=== PATIENT | female | born 1985 | race Caucasian/White ===

== ENCOUNTER 2022-12-11 17:25 | Outpatient (CLI) | payer OTHER, SELFPAY ==
--- NOTE | ~2022-12-11 | CT_ITS ---
EXAMINATION: CT abdomen pelvis w con DATE: 12/11/2022 17:50 INDICATION: R10.31 - Right lower quadrant pain TECHNIQUE: Computed tomography (CT) of the abdomen and pelvis was performed with 100 mL Omnipaque-350 intravenous contrast. Automated exposure control and iterative reconstruction technique were employe d. The dose-length product was 748.42 mGy-cm. COMPARISON: None. FINDINGS: Lower thorax: Unremarkable Liver: Normal. Biliary/Gallbladder: Gallbladder is normal. No bile duct dilation. Pancreas: No mass or duct dilation. Spleen: Normal. Adrenals: 7 mm indeterminate density left adrenal nodule, likely benign adenoma, no additional imagin g workup recommended at this time. Kidneys: No suspicious mass, obstructing stone, or hydronephrosis. Subcentimeter left midpole hypoden sity, too small to characterize but most likely represents a cyst. GI tract: No small or large bowel dilation. Mild appendiceal dilation, to 8 mm, with mild wall edema and mild surrounding inflammatory change. Mesentery/Peritoneum: No ascites, mass, or free air. Retroperitoneum: No mass. Pelvis: Simple bilateral ovarian cysts/dominant follicles. Normal uterus. Normal urinary bladder. Soft Tissues: Soft tissues and body wall unremarkable. Bones: No acute osseous finding. IMPRESSION: Acute uncomplicated appendicitis. Results reported telephonically to Dr. Turcios by Dr. Schmitt at 6:07 PM on 12/11/2022. Reviewed, dictated and finalized at location K. IMPRESSION: Acute uncomplicated appendicitis. Results reported telephonically to Dr. Turcios by Dr. Schmitt at 6:07 PM on 12/12/19 23.
[2022-12-11 18:16] LABS: Basophils Percent Auto 0.3 % (0.2-1.2); Eosinophils Absolute Auto 0.2 K/mm3 (0-0.3); Eosinophils Percent Auto 1.8 % (0-4.4); Hematocrit 33.6 % (37.0-47.0); Hemoglobin 11.3 g/dL (12.0-15.0); Immature Granulocyte Absolute 0.05 K/mm3 (0.00-0.031); Immature Granulocyte Percent A 0.5 % (0-0.5); Lymphocytes Absolute Auto 1.51 K/mm3 (0.9-3.2); Lymphocytes Percent Auto 15.4 % (18.3-44.2); Mean Corpuscular HGB Conc 33.6 g/dl (32-36); Mean Corpuscular Hemoglobin 29.7 pg (26-34); Mean Corpuscular Volume 88.4 fl (80-100); Mean Platelet Volume 9.4 fl (7.4-10.4); Monocytes Absolute Auto 0.6 K/mm3 (0.1-0.6); Monocytes Percent Auto 6.2 % (2.6-8.5); Neutrophils Absolute Auto 7.4 K/mm3 (1.3-6.7); Neutrophils Percent Auto 75.8 % (45.5-73.1); Platelet Count Result 242 k/mm3 (150-375); Red Cell Distribution Width 12.9 % (11.5-14.5); White Blood Count 9.8 K/mm3 (4.5-10.0)
[2022-12-11 18:27] LABS: Alanine Aminotransferase 26 U/L (6-35); Albumin Level 4.2 g/dL (3.5-5.1); Alkaline Phosphatase 50 U/L (38-126); Anion Gap 9 mmol/L (8-16); Aspartate Amino Transferase 24 U/L (14-36); Bilirubin,Total 1.2 mg/dL (0.2-1.3); Blood Urea Nitrogen 8 mg/dL (7-17); Calcium 8.7 mg/dL (8.4-10.2); Carbon Dioxide 25 mmol/L (22-30); Chloride 100 mmol/L (98-107); Estimated Glomerular Filt Rate > 60; Glucose 99 mg/dL (65-110); Potassium 3.8 mmol/L (3.4-5.0); Sodium 134 mmol/L (137-145)
[2022-12-11 18:43] LABS: Beta HCG Quantitative < 2.39 mIU/ML
== END 2022-12-11 17:26 | disposition home or self-care (01) ==
LOC: ANHIMG 17:27
PROVIDERS: PCP Family Medicine; Visit Provider Family Medicine
DX: R10.31 Right lower quadrant pain (principal); K35.80 Unspecified acute appendicitis
CPT/HCPCS: 36415; 74177; 80053; 84702; 85025; Q9967

== ENCOUNTER 2022-12-11 18:14 | Observation (INO) | payer OTHER, SELFPAY ==
[2022-12-11 18:41] VITALS: BP 126/69; PULSE 86; RESP 20; TEMP 36.6; O2SAT 100
--- NOTE | 2022-12-11 19:43 | ED.ABDPAIN ---
HPI - Abdominal Pain General Chief Complaint: Abdominal Pain <NIXON Schneider Last Filed: 12/11/22 20:08> Stated Complaint: abd pain <NIXON Schneider Last Filed: 12/11/22 20:08> Time Seen by Provider: 12/11/22 19:29 <NIXON Schneider Last Filed: 12/11/22 20:08> Source: patient <NIXON Schneider Last Filed: 12/11/22 20:08> Mode of arrival: ambulatory <NIXON Schneider Last Filed: 12/11/22 20:08> Limitations: no limitations <NIXON Schneider Last Filed: 12/11/22 20:08> History of Present Illness HPI narrative: This is a 37 year old female that presents to the ER for right lower quadrant abdominal pain. Ongoing today. Associated with chills, nausea, anorexia and diarrhea. She had an outpatient CT scan today. Has not received results yet. Denies fever, or vomiting. <NIXON Schneider Last Filed: 12/11/22 20:08> Related Data Home Medications: Home Medications Medication Instructions Recorded Confirmed bupropion HCl 150 mg 24 hr tablet, 150 mg PO QAM 04/18/22 12/11/22 extended release (Wellbutrin XL) <NIXON Schneider Last Filed: 12/11/22 20:08> Allergies/Adverse Reactions: Allergies Allergy/AdvReac Type Severity Reaction Status Date / Time pear Allergy Unknown Unknown Verified 12/12/22 08:51 Penicillins AdvReac Severe Nausea Verified 12/12/22 12:05 <NIXON Schneider Last Filed: 12/11/22 20:08> Review of Systems Review of Systems: CONSTITUTIONAL: Denies fever GASTROINTESTINAL: Reports abdominal pain, nausea, and diarrhea. <NIXON Schneider Last Filed: 12/11/22 20:08> All systems reviewed & are unremarkable except as noted in HPI and below <NIXON Schneider Last Filed: 12/11/22 20:08> PMFSH Past Medical History Medical History: Medical History Depression Seasonal allergies <Blanca West PA-C - Last Filed: 12/11/22 20:08> Family History Family History: Family History Grandparent Diabetes mellitus Hypertension Heart disease Grandparent Breast cancer Grandparent No problems noted. <Blanca West PA-C - Last Filed: 12/11/22 20:08> Social History Social History: Social History Smoking status: Never smoker Alcohol intake: never Substance use: never Lack of Transportation: No Lack of Food: Never True Current Housing: I Have Housing Concerned About Future Housing: No Difficulty Paying Gas/Electric Bills: No Difficulty Paying for Meds: No Currently Unemployed: No Education: High School Diploma/GED Difficulty w/ Childcare or Family Care: No Living arrangements: with family Gender identity (if verbalized by the patient): Female Sexual Orientation (if Verbalized by the Patient): Straight or Heterosexual Spiritual care concerns: No Agree to blood products: Yes <Blanca West PA-C - Last Filed: 12/11/22 20:08> Exam Narrative: GENERAL: Well-appearing, well-nourished, and in no acute distress. HEAD: Normocephalic, atraumatic. EYES: EOMI. CHEST: Clear to auscultation. No respiratory distress. No wheezes rales or rhonchi HEART: Regular rate and rhythm. No murmur heard. Normal peripheral pulses. ABDOMEN: Soft, nondistended, normal active bowel sounds. Tender to palpation in the right lower quadrant, without guarding EXTREMITIES: Normal range of motion. No edema. SKIN: Warm, dry, no rash. NEURO: No focal deficits. Alert and oriented x3. 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
[2022-12-11] MEDS: MORPHINE SULFATE (*CRX) 4 MG/ML INJ IV PUSH (20:19)
[2022-12-11] MEDS: ONDANSETRON INJ 4 MG/2 ML VIAL IV PUSH (20:19)
[2022-12-11 20:54] VITALS: BP 130/70; PULSE 82; RESP 16; O2SAT 99
[2022-12-11 21:20] VITALS: BP 114/75; PULSE 79; RESP 18; TEMP 36.7; O2SAT 100
[2022-12-11] MEDS: SODIUM CHLORIDE 0.9% IV 1,000 ML 125 ML IV CONT (22:11)
[2022-12-11] MEDS: metroNIDAZOLE 500 MG/ISO 100ML 500 MG/100 ML BAG 100 MG IVPB (22:14)
--- NOTE | 2022-12-11 22:22 | ADMGEN ---
This patient, Blanca Evans, was admitted to 3 [facility] Surg Room 319-01 @2105. Patient/family oriented to hospital policies and general routines including ID bracelet, bed and alarms, visiting hours, pain management, procedures, bathroom and other care routines, personal items, smoking policy, room service/diet, and visiting hours. Information on how to activate the Rapid Response Team has been discussed. Patient/Family are encouraged to report perceived risks to care and to ask questions if they do not understand what they are told or what they should do.
[2022-12-12] VITALS (15 sets, daily range): BP systolic 104–134; BP diastolic 56–79; PULSE 65–94; RESP 14–20; TEMP 36.2–36.9; O2SAT 98–100
[2022-12-12] MEDS: metroNIDAZOLE 500 MG/ISO 100ML 500 MG/100 ML BAG 100 MG IVPB (05:17)
[2022-12-12 07:19] LABS: Basophils Percent Auto 0.4 % (0.2-1.2); Eosinophils Absolute Auto 0.2 K/mm3 (0-0.3); Eosinophils Percent Auto 3.6 % (0-4.4); Hematocrit 32.4 % (37.0-47.0); Hemoglobin 10.8 g/dL (12.0-15.0); Immature Granulocyte Absolute 0.02 K/mm3 (0.00-0.031); Immature Granulocyte Percent A 0.4 % (0-0.5); Lymphocytes Absolute Auto 1.09 K/mm3 (0.9-3.2); Lymphocytes Percent Auto 19.9 % (18.3-44.2); Mean Corpuscular HGB Conc 33.3 g/dl (32-36); Mean Corpuscular Hemoglobin 29.9 pg (26-34); Mean Corpuscular Volume 89.8 fl (80-100); Mean Platelet Volume 9.6 fl (7.4-10.4); Monocytes Absolute Auto 0.4 K/mm3 (0.1-0.6); Monocytes Percent Auto 7.5 % (2.6-8.5); Neutrophils Absolute Auto 3.7 K/mm3 (1.3-6.7); Neutrophils Percent Auto 68.2 % (45.5-73.1); Platelet Count Result 208 k/mm3 (150-375); Red Blood Count 3.61 M/mm3 (4.2-5.4); Red Cell Distribution Width 12.9 % (11.5-14.5); White Blood Count 5.5 K/mm3 (4.5-10.0)
[2022-12-12 07:30] LABS: Alanine Aminotransferase 23 U/L (6-35); Albumin Level 3.8 g/dL (3.5-5.1); Alkaline Phosphatase 48 U/L (38-126); Anion Gap 4 mmol/L (8-16); Aspartate Amino Transferase 22 U/L (14-36); Blood Urea Nitrogen 7 mg/dL (7-17); Calcium 8.3 mg/dL (8.4-10.2); Carbon Dioxide 26 mmol/L (22-30); Chloride 106 mmol/L (98-107); Estimated CRCL calculation 123 ml/min; Estimated Glomerular Filt Rate > 60; Glucose 118 mg/dL (65-110); Potassium 3.6 mmol/L (3.4-5.0); Sodium 136 mmol/L (137-145)
[2022-12-12] MEDS: KETOROLAC 15 MG/ML VIAL (*BKC) IV PUSH (08:30)
[2022-12-12] MEDS: SCOPOLAMINE 1.5 MG PATCH TRANSDERM (08:30)
[2022-12-12] MEDS: ONDANSETRON INJ 4 MG/2 ML VIAL IV PUSH (08:30)
[2022-12-12] MEDS: LACTATED RINGERS 1,000 ML 30 ML IV CONT ×2 (08:30→10:38)
[2022-12-12] MEDS: MORPHINE SULFATE (*CRX) 4 MG/ML INJ IV PUSH (08:45)
--- NOTE | 2022-12-12 09:12 | WPDANESEPPF ---
Anes - Initial Pre Proc Eval Procedure: Operation Date: 12/12/22 09:30 Proposed Procedures p Laparoscopic Appendectomy; Possible Open - Anny Laureano MD Date/Time: 12/12/22 09:12 Surgeon: Corinna Walker DO Pre Op Diagnosis: Acute Appendicitis Patient Data Age: 37 Gender: F Height: 1.68 m Weight: 86.7 kg Last Vital Signs Temp 97.9 F 12/12/22 08:30 Pulse 77 12/12/22 08:30 Resp 16 12/12/22 08:30 BP 119/66 12/12/22 08:30 Pulse Ox 100 12/12/22 08:30 O2 Del Method Room Air 12/12/22 08:30 Allergies Allergy/AdvReac Type Severity Reaction Status Date / Time Penicillins Allergy Severe Nausea Verified 12/12/22 08:51 pear Allergy Unknown Unknown Verified 12/12/22 08:51 Home Medications Medication Instructions Recorded Confirmed Type bupropion HCl 150 mg 24 hr tablet, 150 mg PO QAM 04/18/22 12/11/22 History extended release (Wellbutrin XL) Laboratory Tests 12/12/22 06:51 WBC 5.5 K/mm3 (4.5-10.0) RBC 3.61 L M/mm3 (4.2-5.4) Hgb 10.8 L g/dL (12.0-15.0) Hct 32.4 L % (37.0-47.0) MCV 89.8 fl (80-100) MCH 29.9 pg (26-34) MCHC 33.3 g/dl (32-36) RDW 12.9 % (11.5-14.5) Plt Count 208 k/mm3 (150-375) MPV 9.6 fl (7.4-10.4) Immature Gran % (Auto) 0.4 % (0-0.5) Neut % (Auto) 68.2 % (45.5-73.1) Lymph % (Auto) 19.9 % (18.3-44.2) [place] % (Auto) 7.5 % (2.6-8.5) Eos % (Auto) 3.6 % (0-4.4) Baso % (Auto) 0.4 % (0.2-1.2) Lymph # (Auto) 1.09 K/mm3 (0.9-3.2) [place] # (Auto) 0.4 K/mm3 (0.1-0.6) Eos # (Auto) 0.2 K/mm3 (0-0.3) Baso # (Auto) 0.0 K/mm3 (0.0-0.1) Abs Immat Gran (auto) 0.02 K/mm3 (0.00-0.031) Absolute Neuts (auto) 3.7 K/mm3 (1.3-6.7) Absolute Nucleated RBC 0.0 K/mm3 (0.0-0.012) Nucleated RBC % 0.0 % (0.0-0.2) Sodium 136 L mmol/L (137-145) Potassium 3.6 mmol/L (3.4-5.0) Chloride 106 mmol/L (98-107) Carbon Dioxide 26 mmol/L (22-30) Anion Gap 4 L mmol/L (8-16) BUN 7 mg/dL (7-17) Creatinine 0.60 L mg/dL (0.7-1.0) Estim Creat Clear Calc 123 ml/min Estimated GFR > 60 (59 - ) Glucose 118 H mg/dL (65-110) Calcium 8.3 L mg/dL (8.4-10.2) Total Bilirubin 1.0 mg/dL (0.2-1.3) AST 22 U/L (14-36) ALT 23 U/L (6-35) Alkaline Phosphatase 48 U/L (38-126) Total Protein 7.0 g/dL (6.3-8.2) Albumin 3.8 g/dL (3.5-5.1) Patient hx anesthesia problems: post op nausea/vomiting (has scopolamine patch in place) Family hx anesthesia problems: none Results Review: All pre-operative results and documents have been reviewed as part of the pre-operative evaluation. [facility] Past Medical History Medical History Depression Seasonal allergies Family History Family History (Updated 12/11/22 @ 22:36 by Kristi Gupta RN) Grandparent Diabetes mellitus Hypertension Heart disease Grandparent Breast cancer Grandparent No problems noted. Social History Social History Smoking status: Never smoker Alcohol intake: never Substance use: never Lack of Transportation: No Lack of Food: Never True Current Housing: I Have Housing Concerned About Future Housing: No Difficulty Paying Gas/Electric Bills: No Difficulty Paying for Meds: No Currently Unemployed: No Education: High School Diploma/GED Difficulty w/ Childcare or Family Care: No Living arrangements: with family Gender identity (if verbalized by the patient): Female Sexual Orientation (if Verbalized by the Patient): Straight or Heterosexual Spiritual care concerns: No Agree to blood products: Yes Anes - Eval Final PreProcedure Day of Procedure 12/12/22 09:12 Patient weight: obese Heart: regular rate and rhythm Lungs: clear to auscult
--- NOTE | 2022-12-12 09:23 | PM.IMHP ---
H&P: HPI History of Present Illness Date/Time: 12/12/22 09:23 Chief Complaint: Acute appendicitis Narrative: The patient is a 37-year-old female presenting to the emergency department complaining of right lower quadrant abdominal pain. The patient reported the pain started yesterday and progressively worsened through the day. The patient reports associated nausea and poor appetite. Workup including imaging, is significant for acute uncomplicated appendicitis. The patient denies previous episodes in the past. Review of Systems Review of Systems: All systems reviewed & are unremarkable except as noted in HPI and below PMFSH Past Medical History Medical History Depression Seasonal allergies Family History Family History Grandparent Diabetes mellitus Hypertension Heart disease Grandparent Breast cancer Grandparent No problems noted. Social History Social History Smoking status: Never smoker Alcohol intake: never Substance use: never Lack of Transportation: No Lack of Food: Never True Current Housing: I Have Housing Concerned About Future Housing: No Difficulty Paying Gas/Electric Bills: No Difficulty Paying for Meds: No Currently Unemployed: No Education: High School Diploma/GED Difficulty w/ Childcare or Family Care: No Living arrangements: with family Gender identity (if verbalized by the patient): Female Sexual Orientation (if Verbalized by the Patient): Straight or Heterosexual Spiritual care concerns: No Agree to blood products: Yes Meds Home Medications and Allergies Home Medications Medication Instructions Recorded Confirmed Type bupropion HCl 150 mg 24 hr tablet, 150 mg PO QAM 04/18/22 12/11/22 History extended release (Wellbutrin XL) Allergies Allergy/AdvReac Type Severity Reaction Status Date / Time Penicillins Allergy Severe Nausea Verified 12/12/22 08:51 pear Allergy Unknown Unknown Verified 12/12/22 08:51 Vital Signs Vital Signs - 24 hr 12/11/22 18:41 12/11/22 20:54 12/11/22 21:20 Temperature 36.6 C 36.7 C Pulse Rate 86 82 79 Respiratory Rate 20 16 18 Blood Pressure 126/69 130/70 114/75 Pulse Oximetry 100 99 100 Oxygen Delivery Room Air 12/11/22 23:08 12/12/22 00:00 12/12/22 04:00 Temperature 36.2 C L 36.3 C L Pulse Rate 74 85 Respiratory Rate 16 18 Blood Pressure 117/67 134/77 Pulse Oximetry 99 99 Oxygen Delivery Room Air 12/12/22 08:30 Temperature 36.6 C Pulse Rate 77 Respiratory Rate 16 Blood Pressure 119/66 Pulse Oximetry 100 Oxygen Delivery Room Air Exam Const: General: cooperative, no acute distress, tired appearing, uncomfortable and obese HENMT: Head: normal to inspection, normocephalic and atraumatic Eyes: General: appearance normal, both eyes and all related structures Neck: Neck: normal visual inspection, full ROM and no lymphadenopathy Resp: Auscultation: clear to auscultation bilaterally Cardio: Rate: regular rate Rhythm: regular rhythm GI: Inspection: normal to inspection and distended GI Palp: Yes abdominal tenderness, Yes Soft to palpation, Yes Tenderness to palpation present (GI), Yes Guarding due to palpation present (GI) and No Rigid due to palpation Skin: General skin exam: normal color and no rashes or lesions noted Neuro: General: patient oriented x3 and CN's II-XI intact bilaterally Extrem: General: normal to inspection and full ROM H&P: Results Labs Labs: Short CBC 12/12/22 Range/Units 06:51 WBC 5.5 (4.5-10.0) K/mm3 Hgb 10.8 L (12.0-15.0) g/dL Hct 32.4 L (37.0-47.0) % Plt Count 208 (150-375) k/mm3 BMP 12/12/22 06:51 Sodium 136 L Potassium 3.6 Chloride 106 Carbon Dioxide 26 BUN 7 Creatinine 0.60 L Glucose 118 H Calcium 8.3 L Liver Functi
--- NOTE | 2022-12-12 09:26 | WPDHPUPDATE1 ---
History and Physical Update Update Date/Time: 12/12/22 09:26 History and Physical has been reviewed, including an updated exam of the patient. There are NO changes in the patient's condition. Risks, benefits, and alternatives have been discussed and questions answered. Patient agrees to proceed with procedure.
[2022-12-12] MEDS: BUPIVACAINE/EPINEPHRINE 0.5% 50 ML VIAL 30 ML INFILTRATE (10:00)
--- NOTE | 2022-12-12 10:41 | P.OP_ITS ---
Procedure Note - Detailed Date of Procedure 12/12/22 Pre-op Diagnosis Acute Appendicitis Post-op Diagnosis Same Procedure Performed laparoscopic appendectomy Surgeon Anny Laureano MD Anesthesia General Indications 37-year-old female presenting to the emergency department complaining of lower abdominal pain. Workup including imaging consistent with acute appendicitis. Findings acute appendicitis no evidence of perforation Description of Procedure The patient was taken to the operating room and placed in the supine position. After adequate induction of general anesthesia, the patient was prepped and drap ed in the normal sterile fashion. A time-out was then done to verify the patient's identity, as well as the procedure being performed. I began by making a 5 mm incision in the infraumbilical region, through this a Veress needle was placed in the peritoneal cavity. CO2 gas was then insufflated and after adequate pneumoperitoneum was achieved the Veress needle was removed. Then placed a 5 mm Optiview trocar under direct visualization into the peritoneal cavity. I then insufflated through this trocar site and the endoscope was placed into the trocar. Under direct visualization, placed 2 further 5 mm suprapubic port as well as an additional 12 mm port in the left lower abdomen. At this point identified the cecum, I retracted the cecum both medially and superiorly allowing me to expose the appendix. The appendix was noted to be very dilated and inflamed. The appendix was noted to be very adherent to the right lateral sidewall as well as the ileum. I was able to bluntly dissect the appendix from these adhesions. I then was able to locate the base of the appendix with the cecum. I created a window with the [place] dissector between the appendix itself and the mesoappendix. I then transected the mesoappendix with a white vascular staple load. The Endo-LINWOOD was then reloaded with a blue staple load and I transected the base of the appendix. Once the specimen was completely detached, an endo-pouch was placed into the 12 mm port site and the specimen was removed through the endo-pouch. The appendiceal specimen will be sent to pathology for further review. I then copiously irrigated the right lower quadrant. Hemostasis was noted at both staple lines no other pathology was seen in this area. I then moved the camera to the suprapubic port to check our its port of entry. No iatrogenic injury or other pathology was noted in the upper abdomen. I then closed the 12 mm port site with a Zeke code and 0 Vicryl suture under direct visualization. At this point, the abdomen was desufflated and all ports were removed. All port sites were closed with 4 Monocryl subcuticular suture. Dermabond was placed on all wounds. The patient tolerated the procedure well and was extubated in the operating room postop. She will be sent to the recovery room in stable condition. Estimated Blood Loss 10 Urine Output 0 Drains No Packing No Pathology Yes Complications No immediate complications Condition Stable Disposition PACU [facility] Billing Surgery - Charge Forward: Surgery Billing
[2022-12-12] MEDS: fentaNYL CITRATE INJ (*CRX) 100 MCG/2 ML VIAL 25 MCG IV PUSH ×4 (11:36→11:53)
--- NOTE | 2022-12-13 11:39 | PM.DS ---
DS: Admitting Diagnosis Discharge Date 12/12/22 Admitting Diagnosis acute appendicitis DS: Discharge Diagnosis Discharge Diagnosis (1) Acute appendicitis: Qualifiers: Acute appendicitis type: with localized peritonitis Appendicitis abscess presence: without abscess Appendicitis gangrene presence: without gangrene Appendicitis perforation presence: without perforation Qualified Code(s): K35.30 - Acute appendicitis with localized peritonitis, without perforation or gangrene Code(s): K35.80 - Unspecified acute appendicitis Status: Acute Assessment and Plan: s/p lap appy, doing well, cont routine postop care, home c po analgesia, Colace, f/u 2 wks DS: Summary Hospital Course Reason for hospitalization: acute appendicitis Hospital Course: 37 y/o F presenting to ED c/o RLQ abd pain. Workup, including imaging, c/w acute appendicitis. Pt admitted to surgical service and started on IV abx. Pt evaluated and decision to proceed c appendectomy in OR. Pt taken to OR and lap appy performed, please see full op note for details. Postop, pt did well and transferred back to floor. Pt able to kesha diet and ambulate s issue. She will be dc'd home c po analgesia, Colace. Pt to f/u in 2 wks. Status at Discharge Functional status at discharge: independent ambulation Overall status at discharge: patient is progressing back to baseline Time Spent with Patient Time attestation: Total time spent providing and/or coordinating discharge services: Exam Const: General: cooperative, comfortable and no acute distress Resp: Auscultation: clear to auscultation bilaterally Cardio: Rate: regular rate Rhythm: regular rhythm GI: Inspection: normal to inspection, distended and incision GI Palp: Yes abdominal tenderness, Yes Soft to palpation, Yes Tenderness to palpation present (GI), No Guarding due to palpation present (GI) and No Rigid due to palpation DS: Data Data Completed and Pending Pending studies at discharge: Pending at discharge 12/12/22 10:16 Surgical [PTH] Routine Discharge Plan Discharge Attending physician on discharge: Anny Laureano Consulting providers: Blanca West; Seferino Mcfarlane Discharging Clinician: Anny Laureano Anticipated Discharge Date/Time: 12/12/22 14:00 Patient Disposition: Home, Self-Care Activity: may shower Diet: as tolerated Wound Care Instructions: incision open to air Discharge Instructions: DISCHARGE INSTRUCTION SHEET FOR HERNIA, GALLBLADDER AND APPENDIX SURGERIES DR. LAUREANO PATIENT TO TAKE HOME 1. May shower in 24 hours, no soaking in bath x 2weeks. 2. Call office for: Wound increasingly painful or bleeding Vomiting Fever of greater than 101 degrees 3. If no bowel movement for three days, take 1 oz. (30 ml) Milk of Magnesia or MiraLax 17g 1 to 2 times daily. 4. No heavy lifting > 10-15 pounds x 6 weeks for hernia repairs and 2 weeks for laparoscopic cholecystectomy or appendectomy. 5. No driving for 3 days or while taking narcotic pain medications. 6. Ice to surgical site for 48 hours (30 min on, then 30 min off). 7. Up walking 10-30 minutes three times per day. 8. Resume previous home medications. 9. Follow-up 10-14 days in office for wound check or as previously scheduled. ([phone]) 10. Oral pain medications prescription to be sent to pharmacy. Take Tylenol 500mg every 6 hours and Ibuprofen 600mg every 6 hours for the first 2 days, then as needed. 11. NUTRITION: Start out by drinking fluids and increase your diet as tolerated. If you experience nausea, try dry toast, crackers, and 7-UP. If nausea or vomiting persists, contact your surgeon?s office. 12. Gallbladders-Low Fat Diet for 2 weeks (send care note of low fat diet) 13. Inguinal Hernias-wear scrotal support for 48 hours 14. Abdominal Hernias-if sent home with abdominal binder, wear for
== END 2022-12-12 17:20 | disposition home or self-care (01) ==
LOC: ANHED 20:05 → ANH3MEDSUR 20:25
PROVIDERS: Admitting Provider Surgery; Emergency Provider Physician Assistant; PCP Family Medicine; Visit Provider Surgery
PROC: 0DTJ4ZZ Resection of Appendix, Percutaneous Endoscopic Approach (ICD-10-PCS; CPT 44970; principal; 2022-12-12 09:30)
DX: K35.80 Unspecified acute appendicitis (principal); R63.0 Anorexia; Z68.30 Body mass index [BMI] 30.0-30.9, adult; R19.7 Diarrhea, unspecified; F32.A Depression, unspecified; J30.2 Other seasonal allergic rhinitis; Z79.899 Other long term (current) drug therapy
CPT/HCPCS: 44970; 36415; 74177; 80053; 84702; 85025; 88304; 96365; 96367; 96375; 99285; A9270; G0378; J0330; J0696; J1836; J1885; J2250; J2270; J2405; J2704; J3010; J7030; J7120; Q9967

== ENCOUNTER 2023-08-29 16:16 | Outpatient (CLI) | payer OTHER, SELFPAY ==
[2023-08-30 19:58] LABS: Lupus dRVVT Screen 36 sec (< OR = 45); PTT-LA Screen 31 sec (< OR = 40)
[2023-09-01 03:08] LABS: Anti Cardio Antibody IgM <2.0 MPL-U/mL; Anti Cardiolipin Antibody IgA <2.0 APL-U/mL; Anti Cardiolipin Antibody IgG 9.5 GPL-U/mL
== END 2023-08-29 16:17 | disposition home or self-care (01) ==
LOC: ANHLAB 16:18
PROVIDERS: PCP Family Medicine; Visit Provider Obstetrics & Gynecology
DX: R10.31 Right lower quadrant pain (principal)
CPT/HCPCS: 36415; 85613; 85730; 86146; 86147

== ENCOUNTER 2023-10-31 18:15 | Emergency (ER) | payer OTHER, SELFPAY ==
[2023-10-31 18:17] VITALS: BP 140/92; PULSE 82; RESP 16; TEMP 36.6; O2SAT 99
--- NOTE | 2023-10-31 18:19 | ED.WOUNDLAC ---
HPI - Wound/Laceration General Chief Complaint: Wound/Laceration Stated Complaint: thumb lac Time Seen by Provider: 10/31/23 18:19 Focused HPI: Pt is a 38-year-old female presenting to the ER with a R thumb laceration. She reports she cut herself while using a mandolin. Pt reports there was a lot of blood and she couldn't get it to stop. GENERAL: Well-appearing, well-nourished, and in no acute distress. CHEST: Clear to auscultation. ?No respiratory distress. HEART: Regular rate and rhythm.? NEURO: ?Alert and oriented x3. Patient screened in triage and initial orders placed.? ?Additional care and disposition to be based upon?diagnostic testing and treatment. Source: patient and family Mode of arrival: ambulatory Limitations: no limitations History of Present Illness HPI narrative: Pt is a 38-year-old female presenting to the ER with a R thumb laceration. She reports she cut herself while using a mandolin. Pt reports there was a lot of blood and she couldn't get it to stop. She presents to the ER with bleeding controlled, but her finger is wrapped in a dishrag. Pt reports she is up-to-date on her Tetanus. Related Data Home Medications Medication Instructions Recorded Confirmed bupropion HCl 150 mg 24 hr tablet, 150 mg PO QAM 04/18/22 12/27/22 extended release (Wellbutrin XL) Allergies Allergy/AdvReac Type Severity Reaction Status Date / Time pear Allergy Unknown Unknown Verified 09/12/23 16:34 Penicillins AdvReac Severe Nausea Verified 09/12/23 16:34 Review of Systems Review of Systems: All systems reviewed & are unremarkable except as noted in HPI and below PMFSH Past Medical History Medical History Depression Seasonal allergies Family History Family History Grandparent Diabetes mellitus Hypertension Heart disease Grandparent Breast cancer Grandparent No problems noted. Social History Social History Smoking status: Never smoker Alcohol intake: never Substance use: never Lack of Transportation: No Lack of Food: Never True Current Housing: I Have Housing Concerned About Future Housing: No Difficulty Paying Gas/Electric Bills: No Difficulty Paying for Meds: No Currently Unemployed: No Education: High School Diploma/GED Difficulty w/ Childcare or Family Care: No Living arrangements: with family Gender identity (if verbalized by the patient): Female Sexual Orientation (if Verbalized by the Patient): Straight or Heterosexual Spiritual care concerns: No Agree to blood products: Yes Exam Const: General: cooperative and alert Nutritional Appearance: well nourished Orientation/consciousness: oriented to person, oriented to place and oriented to time Limitations: no limitations Resp: Effort & Inspection: normal respiratory effort Auscultation: clear to auscultation bilaterally Cardio: Jugular venous distension: no JVD Rate: regular rate Rhythm: regular rhythm Neuro: General: oriented to person, oriented to place and oriented to time Speech: normal speech Motor exam (neuro): 5/5 motor strength present throughout Sensory Exam: normal sensation Extrem: General: normal to inspection Right upper extremity: Extremity exam: right hand laceration Psych: Appearance: grossly normal Speech and movement: Normal speech and movement present Affect: normal affect Course Vital Signs Vital signs: Vital Signs Temperature 36.6 C 10/31/23 18:17 Pulse Rate 82 10/31/23 18:17 Respiratory Rate 16 10/31/23 18:17 Blood Pressure 140/92 H 10/31/23 18:17 Pulse Oximetry 99 10/31/23 18:17 Temperature 36.6 C 10/31/23 18:17 Pulse Rate 82 10/31/23 18:17 Respiratory Rate 16 10/31/23 18:17 Blood Pressure 140/92 H 10/31/23 18:17 Pulse Oxime
== END 2023-10-31 18:57 | disposition home or self-care (01) ==
LOC: ANHED 19:10
PROVIDERS: Emergency Provider Registered Nurse; PCP Family Medicine
DX: S61.011A Laceration without foreign body of right thumb without damage to nail, initial encounter (principal); W27.4XXA Contact with kitchen utensil, initial encounter
CPT/HCPCS: 99282

== ENCOUNTER 2023-11-06 08:11 | Outpatient (NON) | payer OTHER, SELFPAY | END 2023-11-06 08:12 | disposition home or self-care (01) | PROVIDERS: PCP Family Medicine; Visit Provider Surgery | DX: D18.01 Hemangioma of skin and subcutaneous tissue (principal) | CPT/HCPCS: 88305 ==

== ENCOUNTER 2024-01-13 09:56 | Emergency (ER) | payer OTHER, SELFPAY ==
[2024-01-13 10:21] VITALS: BP 128/87; PULSE 83; RESP 16; TEMP 36.8; O2SAT 99
[2024-01-13 10:26] LABS: BEDSIDEPREGUCG Negative (Negative)
[2024-01-13 10:34] LABS: Bacteria Urine Rare /hpf; Non Pathogenic Casts 0-2; RBC Urine >100 /hpf (0-2); Squamous Epithelial Cell Urine None Seen /hpf (Few); WBC Urine 21-50 /hpf (0-3)
[2024-01-13 10:35] LABS: Add Urine Microscopic? YES; Appearance Urine Cloudy (Clear); Bilirubin Urine Negative (Negative); Blood Urine 3+ (Negative); Color Urine Orange (Yellow); Glucose Urine UA Negative (Negative); Ketones Urine Negative (Negative); Leukocyte Esterase Ur 2+ LEU/UL (Negative); Nitrate Urine Negative (Negative); Protein Urine 2+ mg/dL (Negative)
--- NOTE | 2024-01-13 10:53 | ED_ITS ---
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 She states that her last menstrual period was 12/15/2023. She felt like she was having the symptoms of such as nausea, vomiting, abdominal cramping and spotting and she felt that this likely represented but was also severe enough that it felt like when she had a stillborn miscarriage with a 20 week 2day gestational age fetus previously. She did not take a home test. Her OB Gyne is Dr Lemon. patient and her partner have been together for 10 years and recently got last month and so have been trying to get . She has been passing heavy clots. prior to this she was having normal vaginal discharge. No history of sexually transmitted infection and believed to be in monogamous relationship. Her cycle has been 3 days late. Her last bowel movement was yesterday and she denies any diarrhea or constipation. She denies any dysuria, urgency or frequency. Related Data Home Medications Medication Instructions Recorded Confirmed bupropion HCl 150 mg 24 hr tablet, 150 mg PO QAM 04/18/22 11/07/23 extended release (Wellbutrin XL) Allergies Allergy/AdvReac Type Severity Reaction Status Date / Time pear Allergy Unknown Unknown Verified 11/06/23 15:35 Penicillins AdvReac Severe Nausea Verified 11/06/23 15:35 PMFSH Past Medical History Medical History (Updated 01/14/24 @ 00:01 by Vivek Barr) Depression History of miscarriage 20w2d GA; stillborn; 2011 Seasonal allergies Surgical History Surgical History History of appendectomy Family History Family History Grandparent Diabetes mellitus Hypertension Heart disease Grandparent Breast cancer Grandparent No problems noted. Social History Social History (Updated 01/14/24 @ 05:59 by Justine Moore MD) Social History: Smoking status: Never smoker Alcohol intake: never Substance use: never Lack of Transportation: No Lack of Food: Never True Current Housing: I Have Housing Concerned About Future Housing: No Difficulty Paying Gas/Electric Bills: No Difficulty Paying for Meds: No Currently Unemployed: No Education: High School Diploma/GED Difficulty w/ Childcare or Family Care: No Living arrangements: with family Gender identity (if verbalized by the patient): Female Sexual Orientation (if Verbalized by the Patient): Straight or Heterosexual Spiritual care concerns: No Agree to blood products: Yes Exam Narrative: GENERAL: well-nourished, and in no acute distress. HEAD: Normocephalic, atraumatic. EYES: Non injected, non icteric ENT: Nares clear, no rhinorrhea or epistaxis. NECK: Supple. CHEST: Speaking in full sentences. No respiratory distress. HEART: Regular rate and rhythm. . ABDOMEN: Soft, nondistended. mild suprapubic tenderness otherwise without tenderness no other quadrants. No rigidity or guarding. Not peritoneal. EXTREMITIES: Normal range of motion. No lower extremity edema. SKIN: Warm, dry, no rash. NEURO: No focal deficits. Alert and oriented x3. PSYCH: Congruent mood and affect. intermittent eye contact, frequently looking away/at the TV Course Vital Signs Vital signs: Vital Signs Temperature 98.3 F 01/13/24 10:21 Pulse Rate 83 01/13/24 10:21 Respiratory Rate 16 01/13/24 10:21 Blood Pressure 128/87 01/13/24 10:21 Pulse Oximetry 99 01/13/24 10:21 Temperature 98.3 F 01/13/24 10:21 Pulse Rate 71 01/13/24 13:00 Respiratory Rate 18 01/13/24 13:00 Blood Pressure 127/79 01/13/24 13:00 Pulse Oximetry 99 01/13/24 13:00 MDM - OB/Uterine Contractions MDM Narrative Medical decision making narrative: This is a 38 year old 010 female presents with vaginal bleeding and cramping. She had been 3 days late for her menstrual cycle (LMP 12/15/23) and had been having nausea, vomiting, tiredness, breast tenderness. she thought that she might be but she did not take a home test. She was also concerned that if she was she was miscarrying as her abdominal cramping and spotting felt like they did when she had a stillborn miscarriage of 2nd trimester fetus in 2011. In the emergency department they are afebrile with vital signs within normal limits. Negative urine test. DIFFERENTIAL DIAGNOSIS Her vaginal bleeding is most likely of non emergent etiology and strongly felt to be due to her menstrual cycle. Considered hemorrhagic cystitis (see below) Unlikely PID: monogamous with sexual partner also believed to be monogamous, no history of STDs Unlikely other infectious etiology: nonseptic appearance, no recent history of instrumentation. Patient does not have bacteria on her urinalysis. She does have red blood cells likely due to her. . In addition she has white blood cells and 2+ leukocyte esterase however she denies any symptoms such as dysuria, urgency, frequency or alternative hematuria. Although she has some suprapubic tenderness on exam and so possibly hemorrhagic cystitis she states that this does not feel like urinary tract infection for this reason we will defer giving antibiotics and await urine culture. She is notified that if she received a phone call it would be because urine culture grew bacteria and she would be placed on an antibiotic regimen. Discussed findings of her workup with patient as well as her mother and stepfather at bedside. Patient prescribed acetaminophen, vitamins (states she is already taking), and ondansetron. Advised follow-up with renewable energy consultant and gave ED return precautions. Discharged in stable condition. Lab Data Attestation: I reviewed the patient's lab results. Lab results narrative: No leukocytosis 01/13/24 11:12 01/13/24 11:12 Labs: Lab Results 01/13/24 01/13/24 01/13/24 Range/Units 10:22 10:23 11:12 WBC 7.5 (4.5-10.0) K/mm3 RBC 4.10 L (4.2-5.4) M/mm3 Hgb 12.2 (12.0-15.0) g/dL Hct 34.9 L (37.0-47.0) % MCV 85.1 (80-100) fl MCH 29.8 (26-34) pg MCHC 35.0 (32-36) g/dl RDW 13.2 (11.5-14.5) % Plt Count 263 (150-375) k/mm3 MPV 9.3 (7.4-10.4) fl Immature Gran % (Auto) 0.5 (0-0.5) % Neut % (Auto) 75.7 H (45.5-73.1) % Lymph % (Auto) 17.1 L (18.3-44.2) % [place] % (Auto) 5.5 (2.6-8.5) % Eos % (Auto) 0.9 (0-4.4) % Baso % (Auto) 0.3 (0.2-1.2) % Lymph # (Auto) 1.28 (0.9-3.2) K/mm3 [place] # (Auto) 0.4 (0.1-0.6) K/mm3 Eos # (Auto) 0.1 (0-0.3) K/mm3 Baso # (Auto) 0.0 (0.0-0.1) K/mm3 Abs Immat Gran (auto) 0.04 H (0.00-0.031) K/mm3 Absolute Neuts (auto) 5.7 (1.3-6.7) K/mm3 Absolute Nucleated RBC 0.000 (0.0-0.012) K/mm3 Nucleated RBC % 0.0 (0.0-0.2) % Sodium 140 (137-145) mmol/L Potassium 3.9 (3.4-5.0) mmol/L Chloride 105 (98-107) mmol/L Carbon Dioxide 24 (22-30) mmol/L Anion Gap 11 (4-12) mmol/L BUN 11 (7-17) mg/dL Creatinine 0.60 L (0.7-1.0) mg/dL Estim Creat Clear Calc Not Reportable Estimated GFR > 60 (59 - ) Glucose 98 (65-110) mg/dL Calcium 8.9 (8.4-10.2) mg/dL Total Bilirubin 0.7 (0.2-1.3) mg/dL AST 20 (14-36) U/L ALT 24 (6-35) U/L Alkaline Phosphatase 53 (38-126) U/L Total Protein 7.0 (6.3-8.2) g/dL Albumin 4.3 (3.5-5.1) g/dL Beta HCG, Quant < 2.39 mIU/ML Urine Color [place] H (Yellow) Urine Appearance Cloudy H (Clear) Urine pH 6.0 (5.0-9.0) Ur Specific [place] 1.020 (1.001-1.035) Urine Protein 2+ H (Negative) mg/dL Urine Glucose (UA) Negative (Negative) mg/dL Urine Ketones Negative (Negative) mg/dL Ur Blood (Man) 3+ H (Negative) Urine Nitrate Negative (Negative) Urine Bilirubin Negative (Negative) Urine Urobilinogen 1.0 (<2.0) mg/dL Leukocyte Esterase Rfl 2+ H (Negative) SHREYA/UL Urine RBC >100 H (0-2) /hpf Urine WBC 21-50 H (0-3) /hpf Ur Squamous Epith Cells None seen (Few) /hpf Urine Bacteria Rare /hpf Urine Casts 0-2 POC Urine HCG, Qual Negative (Negative) Influenza A (RT-PCR) Negative (Negative) Influenza B (RT-PCR) Negative (Negative) SARS-CoV-2 RNA (RT-PCR) Negative (Negative) Discharge Plan Discharge Clinical Impression: Vaginal bleeding, Abnormal urinalysis Patient Disposition: Home, Self-Care Condition: Stable Instructions: Antibiotic Form, Abdominal Pain (ED) Additional Instructions: Your urine and blood test were negative. the rest of your workup did not reveal a cause of your pain and thus it might just represent your. period Beginning albeit a few days late. your urinalysis did have some abnormal findings although there was no bacteria and you state that you are not having symptoms of urinary tract infection. The culture will be processed in the lab and, if there is evidence of bacteria, you will be notified and antibiotic regimen will be called in as a prescription for urinary tract infection. Follow-up with your renewable energy consultant Dr Lemon. Return to the emergency department with any new or worsening symptoms. It is safe to take a maximum of 4000mg/day of acetaminophen. If you are actively trying to get pr egnant, you should be taking a daily vitamin and this has been prescribed as well. If you continue to have nausea, you can use the oral disintegrating tablets of ondansetron/Zofran. Prescriptions: New acetaminophen 500 mg capsule 1,000 mg PO Q6H PRN (Reason: pain) Qty: 30 0RF ondansetron 4 mg tablet,disintegrating 4 mg PO Q8H PRN (Reason: nausea and vomiting) Qty: 7 0RF PNV cmb#95-ferrous fumarate-FA [ Formula] 28 mg iron- 800 mcg tablet 1 tablet PO DAILY Qty: 30 0RF No Action bupropion HCl [Wellbutrin XL] 150 mg tablet extended release 24 hr 150 mg PO QAM Follow-up/Referrals: Elena Turcios MD [Primary Care Provider] - Stand Alone Forms: Work/School Release IP Time of Disposition: 12:38
[2024-01-13 11:16] LABS: Basophils Percent Auto 0.3 % (0.2-1.2); Eosinophils Absolute Auto 0.1 K/mm3 (0-0.3); Eosinophils Percent Auto 0.9 % (0-4.4); Hematocrit 34.9 % (37.0-47.0); Hemoglobin 12.2 g/dL (12.0-15.0); Immature Granulocyte Absolute 0.04 K/mm3 (0.00-0.031); Immature Granulocyte Percent A 0.5 % (0-0.5); Lymphocytes Absolute Auto 1.28 K/mm3 (0.9-3.2); Lymphocytes Percent Auto 17.1 % (18.3-44.2); Mean Corpuscular Hemoglobin 29.8 pg (26-34); Mean Corpuscular Volume 85.1 fl (80-100); Mean Platelet Volume 9.3 fl (7.4-10.4); Monocytes Absolute Auto 0.4 K/mm3 (0.1-0.6); Monocytes Percent Auto 5.5 % (2.6-8.5); Neutrophils Absolute Auto 5.7 K/mm3 (1.3-6.7); Neutrophils Percent Auto 75.7 % (45.5-73.1); Platelet Count Result 263 k/mm3 (150-375); Red Cell Distribution Width 13.2 % (11.5-14.5); White Blood Count 7.5 K/mm3 (4.5-10.0)
[2024-01-13 11:28] LABS: Alanine Aminotransferase 24 U/L (6-35); Albumin Level 4.3 g/dL (3.5-5.1); Alkaline Phosphatase 53 U/L (38-126); Anion Gap 11 mmol/L (4-12); Aspartate Amino Transferase 20 U/L (14-36); Bilirubin,Total 0.7 mg/dL (0.2-1.3); Blood Urea Nitrogen 11 mg/dL (7-17); Calcium 8.9 mg/dL (8.4-10.2); Carbon Dioxide 24 mmol/L (22-30); Chloride 105 mmol/L (98-107); Estimated Glomerular Filt Rate > 60; Glucose 98 mg/dL (65-110); Potassium 3.9 mmol/L (3.4-5.0); Sodium 140 mmol/L (137-145)
[2024-01-13] MEDS: ONDANSETRON HCL ODT 4 MG TABLET PO (11:28)
[2024-01-13] MEDS: ACETAMINOPHEN 500 MG TABLET 1000 MG PO (11:28)
[2024-01-13 11:30] VITALS: BP 118/81; PULSE 74; RESP 16; O2SAT 98
[2024-01-13 11:44] LABS: Beta HCG Quantitative < 2.39 mIU/ML
[2024-01-13 11:54] LABS: Influenza A QL RT-PCR Negative (Negative); Influenza B QL RT-PCR Negative (Negative); SARS-CoV-2 RNA PCR Negative (Negative)
[2024-01-13 12:30] VITALS: BP 114/78; PULSE 75; RESP 18; O2SAT 99
[2024-01-13] MEDS: KETOROLAC 30 MG/ML VIAL (*BKC) 15 MG IM (12:55)
[2024-01-13 13:00] VITALS: BP 127/79; PULSE 71; RESP 18; O2SAT 99
== END 2024-01-13 13:13 | disposition home or self-care (01) ==
PROVIDERS: Emergency Provider Student in an Organized Health Care Education/Training Program; PCP Family Medicine
DX: N93.9 Abnormal uterine and vaginal bleeding, unspecified (principal); R82.998 Other abnormal findings in urine; Z20.822 Contact with and (suspected) exposure to COVID-19; F32.A Depression, unspecified; Z79.899 Other long term (current) drug therapy
CPT/HCPCS: 36415; 80053; 81001; 81025; 84702; 85025; 87086; 87636; 96372; 99284; A9270; J1885

== ENCOUNTER 2024-02-10 11:22 | Emergency (ER) | payer OTHER, SELFPAY ==
[2024-02-10 11:33] VITALS: BP 148/85; PULSE 76; RESP 18; TEMP 36.6; O2SAT 100
--- NOTE | 2024-02-10 12:52 | ED.FEMALEGU ---
HPI - Female Genitourinary General Chief complaint: Vaginal Bleeding Stated complaint: 4 weeks preg, lots of bleeding Time Seen by Provider: 02/10/24 12:33 Source: patient and family (mother) Mode of arrival: ambulatory Limitations: no limitations History of Present Illness HPI Narrative: Patient is a 38yo female who presents with concern that she is miscarrying. She states she is approximately 4 weeks . Seen by me with complaint of vaginal bleeding in January at which time she had stated her LMP was 12/15/23 and she was a few days late for her menstrual cycle. Thought she might be at that time but no home test and urine/serum testing done in ED was negative so felt that her vaginal bleeding and cramping likely represented normal menstrual cycle (thus LMP now 01/13/24). She states she has had multiple (total 12) positive tests at home. She had one that was faintly positive on 02/01/24 and then a digital one that read on 02/03/24. She has had another digital test that read positive and the others have been faintly positive. She felt like she was . History of a stillborn miscarriage of a 20 week 2 day GA fetus previously. Her OB Gyne is Dr Amador and given the positive test, had an upcoming appointment to establish new with them in early 2024. A beta HCG had been ordered for outpatient lab draw but her work schedule had not permitted her to get this performed yet. Patient and her have been together for 10 years and got 2 months ago and so have been trying to conceive. She has not yet taken anything for pain. Has been taking vitamins. Started having vaginal spotting today around 0300 followed by heavy bright red blood this morning. Has not been using Maxi pads but did put a Depend brief on. Passing 20 clots and having low abdominal cramping. No history of sexually transmitted infection and believed to be in monogamous relationship. At her recent ED visit there were concerns for a possible UTI but had deferred antibiotic presciption initially and awaited urine culture. This did grow bacteria per patient report and she took her course of antibiotic that was subsequently prescribed. No nausea/vomiting/fever/chills. Related Data Home Medications Medication Instructions Recorded Confirmed bupropion HCl 150 mg 24 hr tablet, 150 mg PO QAM 04/18/22 11/07/23 extended release (Wellbutrin XL) Allergies Allergy/AdvReac Type Severity Reaction Status Date / Time pear Allergy Unknown Unknown Verified 02/10/24 13:55 Penicillins AdvReac Severe Nausea Verified 02/10/24 13:55 PMFSH Past Medical History Medical History Depression History of miscarriage 20w2d GA; still; 2011 Seasonal allergies UTI (urinary tract infection) January 2024 Surgical History Surgical History History of appendectomy Family History Family History Grandparent Diabetes mellitus Hypertension Heart disease Grandparent Breast cancer Grandparent No problems noted. 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 [employer] Gender identity (if verbalized by the patient): Female Sexual Orientation (if Verbalized by the Patient): Straight or Heterosexual Spiritual care concerns: No Agree to blood products: Yes Exam Const: General: healthy appearing, no acute distress and alert; No diaphoretic or ill appearing Nutritional Appearance: well nourished Orientation/consciousness: patient oriented x3 Limitations: no limitations HENMT: Head: normal to inspection Other: gross auditory acuity intact Eyes: Direct Ophthalmoscopy: no photophobia Neck: Neck: normal visual inspection and no meningeal signs Resp: Effort & Inspection: normal respiratory effort, not labored, no retractions, not tachypneic and no use of accessory muscles Cardio: Rate: regular rate GI: Inspection: non-distended GI Palp: Yes Soft to palpation, No Tenderness to palpation present (GI), No Guarding due to palpation present (GI), No Rigid due to palpation and No Palpable mass present : External Female Exam: normal external appearance Speculum Exam - Vagina: normal appearance of the vagina and vaginal bleeding (pooling in posterior vaginal vault; cervical os slightly open) OB/external & speculum: no herpetic lesions Skin: General skin exam: normal color and no jaundice Neuro: General: patient oriented x3, moves all extremities, no meningeal signs and no focal motor deficits Speech: normal speech Extrem: General: normal to inspection Psych: Appearance: grossly normal and not disheveled Affect: normal affect Attitude: cooperative Course Vital Signs Vital signs: Vital Signs Temperature 97.9 F 02/10/24 11:33 Pulse Rate 76 02/10/24 11:33 Respiratory Rate 18 02/10/24 11:33 Blood Pressure 148/85 H 02/10/24 11:33 Pulse Oximetry 100 02/10/24 11:33 Temperature 97.9 F 02/10/24 11:33 Pulse Rate 73 02/10/24 14:14 Respiratory Rate 16 02/10/24 14:14 Blood Pressure 129/72 02/10/24 14:14 Pulse Oximetry 99 02/10/24 14:14 MDM - Female Genitourinary MDM Narrative Medical decision making narrative: This patient is a 38 yo G 1 P 0010 female who comes to the emergency department with vaginal bleeding and cramping starting today. In the emergency department she is afebrile and hemodynamically stable though with VS notable for hypertension. LMP 01/13/24 based on the vaginal bleeding she was experiencing that day which she thought was a miscarriage but for which there were no outpatient or inpatient positive tests. She notes that she had multiple positive tests at home (12 total, 2 digital and the others with only faint lines). Had not been able to get beta hcg lab test yet. Beta hcg undetectable here today. Patient has a normocytic anemia although only 0.5g drop from previous last month. Cervical os is very slightly open which might suggest inevitable versus incomplete miscarriage in the right clinical setting. However, might also represent slight opening due to menstruation. Discussed with Dr Daren Arce who is emergency response technician for patient's OBGyn Dr Costa. States would typically expect to see some slight residual elevation of beta hcg if had been based on the timing/dates so unlikely miscarriage but, given patient's history, would recommend she follow up with her ObGyn this week and in the interim be given strict ED return precautions. She is advised on this and informed about the conversation with ObGyn. Advised to continue taking vitamins and that APAP is safe for pain. Provided a work note off for tomorrow. Differential Diagnosis Differential diagnosis: Likely other (spectrum of miscarriage; normal menstruation; pseudocyesis; abnormal vaginal bleeding) Medical Records Attestation: I reviewed the patient's medical records. Medical records narrative: Reviewed most recent ED visit Lab Data Attestation: I reviewed the patient's lab results. 02/10/24 13:28 02/10/24 13:28 Labs: Lab Results 02/10/24 02/10/24 02/10/24 Range/Units 13:28 14:03 14:08 WBC 8.3 (4.5-10.0) K/mm3 RBC 3.93 L (4.2-5.4) M/mm3 Hgb 11.7 L (12.0-15.0) g/dL Hct 33.7 L (37.0-47.0) % MCV 85.8 (80-100) fl MCH 29.8 (26-34) pg MCHC 34.7 (32-36) g/dl RDW 13.3 (11.5-14.5) % Plt Count 263 (150-375) k/mm3 MPV 9.1 (7.4-10.4) fl Immature Gran % (Auto) 0.4 (0-0.5) % Neut % (Auto) 73.0 (45.5-73.1) % Lymph % (Auto) 20.1 (18.3-44.2) % [place] % (Auto) 5.3 (2.6-8.5) % Eos % (Auto) 1.0 (0-4.4) % Baso % (Auto) 0.2 (0.2-1.2) % Lymph # (Auto) 1.66 (0.9-3.2) K/mm3 [place] # (Auto) 0.4 (0.1-0.6) K/mm3 Eos # (Auto) 0.1 (0-0.3) K/mm3 Baso # (Auto) 0.0 (0.0-0.1) K/mm3 Abs Immat Gran (auto) 0.03 (0.00-0.031) K/mm3 Absolute Neuts (auto) 6.0 (1.3-6.7) K/mm3 Absolute Nucleated RBC 0.000 (0.0-0.012) K/mm3 Nucleated RBC % 0.0 (0.0-0.2) % PT 13.9 (11.1-14.7) Seconds INR 1.0 APTT 25.0 (22.3-36.8) Seconds Sodium 138 (137-145) mmol/L Potassium 4.0 (3.4-5.0) mmol/L Chloride 108 H (98-107) mmol/L Carbon Dioxide 24 (22-30) mmol/L Anion Gap 6 (4-12) mmol/L BUN 10 (7-17) mg/dL Creatinine 0.60 L (0.7-1.0) mg/dL Estim Creat Clear Calc Not Reportable Estimated GFR > 60 (59 - ) Glucose 102 (65-110) mg/dL Calcium 9.0 (8.4-10.2) mg/dL Total Bilirubin 0.7 (0.2-1.3) mg/dL AST 25 (14-36) U/L ALT 26 (6-35) U/L Alkaline Phosphatase 55 (38-126) U/L Total Protein 7.0 (6.3-8.2) g/dL Albumin 4.4 (3.5-5.1) g/dL Beta HCG, Quant < 2.39 mIU/ML Urine Color [place] (Yellow) Urine Appearance Clear (Clear) Urine pH 6.5 (5.0-9.0) Ur Specific [place] 1.019 (1.001-1.035) Urine Protein Trace (Negative) mg/dL Urine Glucose (UA) Negative (Negative) mg/dL Urine Ketones Negative (Negative) mg/dL Ur Blood (Man) 3+ H (Negative) Urine Nitrate Negative (Negative) Urine Bilirubin Negative (Negative) Urine Urobilinogen 0.2 (<2.0) mg/dL Leukocyte Esterase Rfl 1+ H (Negative) SHREYA/UL Urine RBC >100 H (0-2) /hpf Urine WBC 6-10 H (0-3) /hpf Ur Squamous Epith Cells Occasional (Few) /hpf Urine Bacteria Rare /hpf Urine Casts 0-2 POC Urine HCG, Qual Negative (Negative) Blood Type O Positive Antibody Screen Negative Screen Not Reportable Baby's Blood Type Not Reportable Baby's [place] Not Reportable Doses of RhIg Required 0 Discharge Plan Discharge Clinical Impression: Vaginal bleeding, Normocytic anemia Patient Disposition: Home, Self-Care Condition: Stable Instructions: Antibiotic Form, Abnormal (Dysfunctional) Uterine Bleeding (ED), Anemia (ED) Additional Instructions: As we discussed, your test (including blood beta hcg) was negative/undetectable. follow-up with your bakery helper Dr Costa to be seen this week. It is safe to take acetaminophen/ Tylenol maximum 4000 mg per day. Return to the emergency department if saturating 2 maxi pads an hour for 2 or 3 hours, or otherwise symptomatic such as intractable pain, passing out/nearly fainting, shortness of breath, etc. Prescriptions: New acetaminophen 500 mg capsule 1,000 mg PO Q6H PRN (Reason: pain) Qty: 20 0RF No Action bupropion HCl [Wellbutrin XL] 150 mg tablet extended release 24 hr 150 mg PO QAM acetaminophen 500 mg capsule 1,000 mg PO Q6H PRN (Reason: pain) Qty: 30 0RF ondansetron 4 mg tablet,disintegrating 4 mg PO Q8H PRN (Reason: nausea and vomiting) Qty: 7 0RF PNV cmb#95-ferrous fumarate-FA [ Formula] 28 mg iron- 800 mcg tablet 1 tablet PO DAILY Qty: 30 0RF Follow-up/Referrals: Elena Turcios MD [Primary Care Provider] - Fam Costa MD [Physician] - (PROGRAMMER [employer] ) Stand Alone Forms: Work/School Release IP Time of Disposition: 15:46
[2024-02-10 13:33] LABS: Basophils Percent Auto 0.2 % (0.2-1.2); Eosinophils Absolute Auto 0.1 K/mm3 (0-0.3); Hematocrit 33.7 % (37.0-47.0); Hemoglobin 11.7 g/dL (12.0-15.0); Immature Granulocyte Absolute 0.03 K/mm3 (0.00-0.031); Immature Granulocyte Percent A 0.4 % (0-0.5); Lymphocytes Absolute Auto 1.66 K/mm3 (0.9-3.2); Lymphocytes Percent Auto 20.1 % (18.3-44.2); Mean Corpuscular HGB Conc 34.7 g/dl (32-36); Mean Corpuscular Hemoglobin 29.8 pg (26-34); Mean Corpuscular Volume 85.8 fl (80-100); Mean Platelet Volume 9.1 fl (7.4-10.4); Monocytes Absolute Auto 0.4 K/mm3 (0.1-0.6); Monocytes Percent Auto 5.3 % (2.6-8.5); Platelet Count Result 263 k/mm3 (150-375); Red Blood Count 3.93 M/mm3 (4.2-5.4); Red Cell Distribution Width 13.3 % (11.5-14.5); White Blood Count 8.3 K/mm3 (4.5-10.0)
[2024-02-10 13:44] LABS: Alanine Aminotransferase 26 U/L (6-35); Albumin Level 4.4 g/dL (3.5-5.1); Alkaline Phosphatase 55 U/L (38-126); Anion Gap 6 mmol/L (4-12); Aspartate Amino Transferase 25 U/L (14-36); Bilirubin,Total 0.7 mg/dL (0.2-1.3); Blood Urea Nitrogen 10 mg/dL (7-17); Carbon Dioxide 24 mmol/L (22-30); Chloride 108 mmol/L (98-107); Estimated Glomerular Filt Rate > 60; Glucose 102 mg/dL (65-110); Prothrombin Time 13.9 Seconds (11.1-14.7); Sodium 138 mmol/L (137-145)
[2024-02-10] MEDS: ACETAMINOPHEN 500 MG TABLET 1000 MG PO (13:54)
[2024-02-10 14:01] LABS: Beta HCG Quantitative < 2.39 mIU/ML
[2024-02-10 14:09] LABS: BEDSIDEPREGUCG Negative (Negative)
[2024-02-10 14:14] VITALS: BP 129/72; PULSE 73; RESP 16; O2SAT 99
[2024-02-10 14:17] LABS: Add Urine Microscopic? YES; Appearance Urine Clear (Clear); Bacteria Urine Rare /hpf; Bilirubin Urine Negative (Negative); Blood Urine 3+ (Negative); Color Urine Yellow (Yellow); Glucose Urine UA Negative (Negative); Ketones Urine Negative (Negative); Leukocyte Esterase Ur 1+ LEU/UL (Negative); Nitrate Urine Negative (Negative); Non Pathogenic Casts 0-2; Protein Urine Trace mg/dL (Negative); RBC Urine >100 /hpf (0-2); Specific Grav Ur 1.019 (1.001-1.035); Squamous Epithelial Cell Urine Occasional /hpf (Few); Urobilinogen Urine 0.2 mg/dL (<2.0); pH Urine 6.5 (5.0-9.0)
== END 2024-02-10 15:52 | disposition home or self-care (01) ==
PROVIDERS: Emergency Provider Student in an Organized Health Care Education/Training Program; PCP Family Medicine
DX: O20.9 Hemorrhage in early pregnancy, unspecified (principal); Z3A.01 Less than 8 weeks gestation of pregnancy; D64.9 Anemia, unspecified
CPT/HCPCS: 36415; 80053; 81001; 81025; 84702; 85025; 85461; 85610; 85730; 86850; 86900; 86901; 87086; 99284; A9270

== ENCOUNTER 2024-02-29 10:47 | Outpatient (CLI) | payer OTHER, SELFPAY ==
[2024-02-29 12:22] LABS: Thyroid Stimulating Hormone Reflex 0.908 uIU/mL (0.465-4.68)
[2024-03-04 07:58] LABS: Progesterone 10.5 ng/mL
[2024-03-04 08:08] LABS: Prolactin 4.7 ng/mL
== END 2024-02-29 10:48 | disposition home or self-care (01) ==
LOC: ANHLAB 10:49
PROVIDERS: PCP Family Medicine; Visit Provider Obstetrics & Gynecology
DX: N97.0 Female infertility associated with anovulation (principal)
CPT/HCPCS: 36415; 84144; 84146; 84443

== ENCOUNTER 2024-05-12 16:37 | Outpatient (CLI) | payer OTHER, SELFPAY ==
[2024-05-12 17:29] LABS: Beta HCG Quantitative < 2.39 mIU/ML
[2024-05-13 11:33] LABS: Progesterone 4.3 ng/mL
== END 2024-05-12 16:38 | disposition home or self-care (01) ==
LOC: ANHLAB 16:40
PROVIDERS: PCP Family Medicine; Visit Provider Obstetrics & Gynecology
DX: Z32.00 Encounter for pregnancy test, result unknown (principal)
CPT/HCPCS: 36415; 84144; 84702

== ENCOUNTER 2024-05-28 15:30 | Outpatient (CLI) | payer OTHER, SELFPAY ==
--- NOTE | ~2024-05-28 | US_ITS ---
EXAM: PELVIC ULTRASOUND HISTORY: Abn vaginal bleeding in a premenopausal patient. Last menstrual period is given as 05/21/2024 . 1 para 0 COMPARISON: None. Reference is made to the CT examination of the abdomen and pelvis dated 12/11/2022 FINDINGS: UTERUS: 7.4 x 3.4 x 5.9 cm. The uterus is anteverted and anteflexed. The endometrial complex measures 5.8 mm. RIGHT OVARY: The right ovary is unremarkable in echogenicity and size measuring 3.3 x 1.7 x 2.1 cm. Dopplerable flow is identified. Dominant follicle within the right ovary. LEFT OVARY: The left ovary is unremarkable in echogenicity and size measuring 2.3 x 1.5 x 1.3 cm Dopplerable flow is identified. No free fluid is identified within the pelvis. IMPRESSION: Dominant follicle within the right ovary. Examination is otherwise unremarkable, as detailed above. Reviewed, dictated and finalized at location A.
== END 2024-05-28 15:31 | disposition home or self-care (01) ==
PROVIDERS: PCP Family Medicine; Visit Provider Obstetrics & Gynecology
DX: N83.01 Follicular cyst of right ovary (principal); N93.9 Abnormal uterine and vaginal bleeding, unspecified
CPT/HCPCS: 76830; 76856

== ENCOUNTER 2024-08-01 14:11 | Outpatient (RCR) | payer OTHER, SELFPAY ==
[2024-08-01 14:32] LABS: Hematocrit 35.0 % (37.0-47.0); Hemoglobin 11.9 g/dL (12.0-15.0); Mean Corpuscular HGB Conc 34.0 g/dl (32-36); Mean Corpuscular Hemoglobin 29.7 pg (26-34); Mean Corpuscular Volume 87.3 fl (80-100); Platelet Count Result 277 k/mm3 (150-375); Red Blood Count 4.01 M/mm3 (4.2-5.4); White Blood Count 9.6 K/mm3 (4.5-10.0)
[2024-08-01 15:17] LABS: Syphilis IgG/IgM Antibody Negative (Negative)
[2024-08-01 15:20] LABS: Hepatitis B Surface Antigen Negative (Negative)
[2024-08-01 15:31] LABS: HIV 1/2 Ab P24 Ag Result Negative (Negative)
== END 2024-10-30 23:59 | disposition home or self-care (01) ==
LOC: ANHLAB 14:11
PROVIDERS: PCP Family Medicine; Visit Provider Obstetrics & Gynecology
DX: Z11.4 Encounter for screening for human immunodeficiency virus [HIV] (principal); Z11.3 Encounter for screening for infections with a predominantly sexual mode of transmission; Z3A.00 Weeks of gestation of pregnancy not specified
CPT/HCPCS: 36415; 85027; 86593; 86703; 86762; 86850; 86900; 86901; 87340; G0432

== ENCOUNTER 2024-08-21 15:06 | Emergency (ER) | payer OTHER, SELFPAY ==
[2024-08-21 15:09] VITALS: BP 138/78; PULSE 77; PULSE 83; RESP 17; RESP 18; O2SAT 100
--- NOTE | 2024-08-21 16:24 | ED.EAR ---
HPI - Ear Problem General Chief complaint: Ear Stated complaint: right ear pain Time Seen by Provider: 08/21/24 15:11 Source: patient Mode of arrival: ambulatory Limitations: no limitations History of Present Illness HPI Narrative: Patient is a 38-year-old female who presents the ED with report of right ear pain. Patient reports she is currently 13 weeks gestation. She had an episode of forceful vomiting/morning sickness yesterday and began having some pain throughout her right ear afterwards. Reports fullness in her right ear, worsening pain today. Denies drainage. Denies abdominal pain, vaginal bleeding. Related Data Home Medications ?Medication ?Instructions ?Recorded ?Confirmed ?Last Taken ?Type bupropion HCl 150 mg 24 hr tablet, 150 mg PO QAM 04/18/22 06/17/24 12/10/22 History extended release (Wellbutrin XL) Allergies Allergy/AdvReac Type Severity Reaction Status Date / Time pear Allergy Unknown Unknown Verified 08/21/24 15:21 Penicillins AdvReac Severe Nausea Verified 08/21/24 15:21 Review of Systems Review of Systems: All systems reviewed & are unremarkable except as noted in HPI. All systems reviewed & are unremarkable except as noted in HPI and below PMFSH Past Medical History Medical History 4 weeks gestation of UTI (urinary tract infection) January 2024 History of miscarriage 20w2d GA; stillborn; 2011 Depression Seasonal allergies Surgical History Surgical History History of appendectomy Family History Family History Grandparent Diabetes mellitus Hypertension Heart disease Grandparent Breast cancer Grandparent No problems noted. 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 HEAD: Normocephalic, atraumatic. ENT: L TM/EAC normal, no signs of infection. R TM is diffusely bulging, minimally erythematous. No obvious perforation. No EAC swelling or erythema. Very mild tenderness to palpation of tragus. RESPIRATORY: Airway patent, respirations nonlabored. CARDIOVASCULAR: Regular rate and rhythm MUSCULOSKELETAL: Moves all extremities. No gross deformities. SKIN: Warm, dry, normal color. NEURO: A&O X3. Speech clear. PSYCHIATRIC: Appropriate mood and affect. Normal interaction. Course Vital Signs Vital signs: Vital Signs Pulse Rate 83 08/21/24 15:09 Respiratory Rate 17 08/21/24 15:09 Blood Pressure 138/78 08/21/24 15:09 Pulse Oximetry 100 08/21/24 15:09 Oxygen Delivery Room Air 08/21/24 15:09 Pulse Rate 77 08/21/24 15:09 Respiratory Rate 18 08/21/24 15:09 Blood Pressure 138/78 08/21/24 15:09 Pulse Oximetry 100 08/21/24 15:09 Oxygen Delivery Room Air 08/21/24 15:09 Medical Decision Making MDM Narrative Medical decision making narrative: Patient presented to ED with right ear pain, 13 weeks gestation. Exam with bulging TM, minimally erythematous. Will cover for otitis media with Augmentin. Discussed likelihood of associated barotrauma related to full episode of vomiting. Advised she may try antihistamine for relief of pressure. Advised to continue Tylenol. Given return precautions. Discharged in stable condition. Medical Records Medical records reviewed: Yes I reviewed the external patient's medical records. Vital Signs Vital Signs: Vital Signs Pulse Rate 83 08/21/24 15:09 Respiratory Rate 17 08/21/24 15:09 Blood Pressure 138/78 08/21/24 15:09 Pulse Oximetry 100 08/21/24 15:09 Oxygen Delivery Room Air 08/21/24 15:09 Pulse Rate 77 08/21/24 15:09 Respiratory Rate 18 08/21/24 15:09 Blood Pressure 138/78 08/21/24 15:09 Pulse Oximetry 100 08/21/24 15:09 Oxygen Delivery Room Air 08/21/24 15:09 Discharge Plan Discharge Clinical Impression: Tympanic membrane inflammation, Acute pain of right ear, 13 weeks gestation of Patient Disposition: Home Condition: Stable Instructions: Antibiotic Form, Earache (ED) Additional Instructions: Take antibiotics as prescribed for possible ear infection. Continue Tylenol as needed for pain. You may also try a Zyrtec or Claritin for relief of pressure in ear. Continue to follow-up with your OBGYN as needed. Return for new or worsening concerns. Patient Language: Yakut Prescriptions: New amoxicillin-pot clavulanate 875-125 mg tablet 1 tablet PO Q12H 7 Days Qty: 14 0RF No Action bupropion HCl [Wellbutrin XL] 150 mg tablet extended release 24 hr 150 mg PO QAM acetaminophen 500 mg capsule 1,000 mg PO Q6H PRN (Reason: pain) Qty: 30 0RF ondansetron 4 mg tablet,disintegrating 4 mg PO Q8H PRN (Reason: nausea and vomiting) Qty: 7 0RF PNV cmb#95-ferrous fumarate-FA [ Formula] 28 mg iron- 800 mcg tablet 1 tablet PO DAILY Qty: 30 0RF acetaminophen 500 mg capsule 1,000 mg PO Q6H PRN (Reason: pain) Qty: 20 0RF Follow-up/Referrals: Fam Costa MD [Primary Care Provider] - Time of Disposition: 16:27
[2024-08-21] MEDS: AMOXICILLIN/CLAVULANATE K 875-125 MG TAB 1 TABLET PO (16:34)
[2024-08-21] MEDS: ACETAMINOPHEN 500 MG TABLET 1000 MG PO (16:34)
== END 2024-08-21 16:40 | disposition home or self-care (01) ==
PROVIDERS: Emergency Provider Physician Assistant; PCP Obstetrics & Gynecology
DX: O99.891 Other specified diseases and conditions complicating pregnancy (principal); H73.21 Unspecified myringitis, right ear; H92.01 Otalgia, right ear; O99.341 Other mental disorders complicating pregnancy, first trimester; F32.A Depression, unspecified; Z87.440 Personal history of urinary (tract) infections; Z79.899 Other long term (current) drug therapy; Z3A.13 13 weeks gestation of pregnancy
CPT/HCPCS: 99283; A9270

== ENCOUNTER 2024-10-20 10:35 | Outpatient (CLI) | payer OTHER, SELFPAY ==
--- OUTSIDE RECORDS SUMMARY | 2024-10-20 10:46 | XMS_ITS | Clinical Summary ---
Author Organization [facility] Address [address] [place] [address] Care Team Providers Care Sports Physician Name Role Phone Unavailable Primary Care Provider Unavailabl e Source Comments [facility],non-owned Affiliates and Associated Physician Practices is amultiple site organization consisting of ambulatory clinics and hospital sitesin [place], [place], [place] and [place]. This disclosure is being madepursuant to the Care Everywhere program and may not contain all information available regarding this patient. Last updated 17.[facility] Encounters Date Type Department Care Team Description 10/10/2024 12:54 PM CDT - 10/10/2024 11:59 PM CDT Hospital Encounter [facility] [address] [place] [id number] Christian James MD Discharge Disposition: Home or Self Care from Last 3 Months Social History Tobacco Use Types Packs/Day Years Used Date Smoking Tobacco: Never Assessed Estimated Date of Delivery Comme nts Yes 02/25/2025 Based on last me nstrual period of 05/21/2024 Sex and Gender Information Value Date Recorded Sex Assigned at Not on file Legal Sex Female 1:03 PM CDT Gender Identity Not on file Sexual Orientation Not on file Plan of Treatment Upcoming Encounters Date Type Department Care Team (Late st Contact Info) Description 11/07/2024 2:30 PM CDT Appointment [facility] [address] [place] [address] Health Maintenance Due Date Last Done Comments HIV SCREENING 10/14/2002 HEPATITIS C SCREENING 10/10/2005 DTAP/TDAP/TD VACCINES (1 - Tdap) 10/14/2006 HEPATITIS B VACCINE (1 of 3 - 19+ 3-dose series) 10/14/2006 PAP SMEAR 10/14/2008 HPV VACCINE (1 - 3-dose SCDM series) 10/14/2014 COVID-19 VACCINE (2023-2 5 season) 2023 DEPRESSION SCREENING 03/12/2024 INFLUENZA VACCINE (#1) 2024 Respiratory Syncytial Virus (RSV) Vaccine Pt: or over 60 yrs (1 - Risk 1-dose series) 12/31/2024 ZOSTER VACCINE (1 of 2) 10/14/2037 HIB VACCINE Aged Out No longer eligi ble based on patient's age to complete this topic MENINGOCOCCAL (Group B) VACC INE SHARED DECISION-MAKING Aged Out No longer eligibl e based on patient's age to complete this topic MENINGOCOCCAL GROUPS A/C/Y/W VACCINE Aged Out No longer eligible b ased on patient's age to complete this topic PNEUMOCOCCAL VACCINE Aged Out No long er eligible based on patient's age to complete this topic Procedures Procedure Name Priority Date/Time Associated Diagnosis Comments SONOGRAM - COMPLETE Routine 10/10/2024 1 :03 PM CDT Encounter for anatomic survey (HCC) 20 weeks gestation of (HCC) from Last 3 Months Results * Sonogram - Complete (10/10/2024 1:03 PM CDT) Linked Results Indication ======== anatomy evaluation Previous stillbirth or Maternal obesity complicating , class 1 (BMI 30.0 - 34.9) History ====== OB History 2. Para 1 [id number] 1. antepartum stillbirth 2011. Gest. age 20 w + 2 d. Sex of child: male. Details: no FHT's at anatomy scan Vaginal delivery Lab Tests Test Date Result NIPT Low risk Maternal Assessment Physical Exam Height 168 cm, 5 ft 6 in. Weight 92 kg, 202 lb. Initial weight 91 kg, 200 lb. BMI 32.60 kg/m . Initial BMI 32.28 kg/m . Weight gain 1 kg, 2 lb Method ====== Transabdominal and transvaginal ultrasound examination. View: Suboptimal view: limited by position ========= Stanton . Number of fetuses: 1 Dating ====== Date Details Gest. age SANGEETHA LMP 05/21/2024 20 w + 2 d 02/25/2025 U/S 10/10/2024 based upon AC, BPD, Femur, HC 20 w + 5 d 02/22/2025 Assigned dating based on the LMP, selected on 10/10/2024 20 w + 2 d 02/25/2025 General Evaluation Cardiac activity present. FHR 154 bpm. Presentation: breech Placenta: Placental site: anterior. Placental urwg-et-wuotifhm os distance 33 mm. No previa seen Umbilical cord: Cord vessels: 3 vessel cord. Insertion site: suboptimal Amniotic fluid: Amount of AF: normal. MVP 4.2 cm Biometry BPD 47.7 mm 20w 3d 56% Hadlock HC 178.9 mm 20w 2d 44% Hadlock Cerebellum tr 21.7 mm 84% [place] Nuchal fold 3.8 mm AC 160.8 mm 21w 1d 73% Hadlock Femur 34.8 mm 21w 0d 66% Hadlock Humerus 35.8 mm 22w 3d 98% Tank HC / AC 1.11 -/- 18% Hadlock Weight Calculation: EFW 391 g 81% Hadlock EFW (lb,oz) 0 lb 14 oz EFW by Hadlock ([id number]) Head / Face / Neck Biometry: CM 4.9 mm 45% Nicolaides appropriate Growth Overview Exam date GA BPD (mm) HC (mm) AC (mm) FL (mm) HL (mm) EFW (g) 10/10/2024 20w 2d 47.7 56% 178.9 44% 160.8 73% 34.8 66% 35.8 98% 391 81% Anatomy The following structures appear normal: Head / Neck Cranium. Lateral ventricles. Choroid plexus. Midline falx. Cavum septi pellucidi. Cerebellum. Cisterna magna. Thalami. Nuchal fold. Heart / Thorax RVOT view. Situs. Bicaval view. Abdomen Cord insertion. Stomach. Kidneys. Bladder. Bowel. Genitals. Spine Cervical spine. Thoracic spine. Lumbar spine. Sacral spine. Extremities / Skeleton Arms. Legs. Feet. The following structures could not be adequately visualized: Face Lips. Profile. Nose. Nasal bone. Orbits. Heart / Thorax 4-chamber view. LVOT view. 3-vessel view. 2-zgkirn-lywuvcd view. Aortic arch view. Ductal arch view. Great vessels. Right lung. Left lung. Diaphragm. Extremities / Skeleton Hands. sex: female. Maternal Structures Cervix reassuring Approach - Transvaginal: Cervical length 3.80 cm Funneling absent Right Ovary Not visualized Appearance: Adnexa appears normal Left Ovary Not visualized Appearance: Adnexa appears normal Impression ========= Single live intrauterine at 20w 2d The size is appropriate. The amniotic fluid volume is normal. The transvaginal cervical length is reassuring. No major malformations were seen within the limitations of ultrasound. Comment ======== ultrasound alone cannot detect all structural, genetic, or functional , placental, or maternal abnormalities Follow-up ======== Follow up ultrasound in 4 weeks for growth and to complete anatomic survey Coding ====== Diagnoses O99.212, E66.811: Obesity complicating , class 1 (BMI 30.0 - 34.9) O09.292: Supervision of with other poor reproductive or obstetric history Z36.3: Encounter for screening for malformations Procedures 39097: US Preg Uterus Detailed 67610: US Preg Uterus Transvaginal 2Win-Solutions PACS Anatomical Region Laterality Modality Other 10/10/2024 1:03 PM CDT Leonard De La Fuente MD [facility] ORDERABLES Edited Result - Final from Last 3 Months Insurance [facility] Address: [facility] [address] [place] [address]
[2024-10-20 11:15] VITALS: BP 121/70; PULSE 82
[2024-10-20 11:16] LABS: Hematocrit 31.6 % (37.0-47.0); Hemoglobin 10.4 g/dL (12.0-15.0); Immature Granulocyte Percent A 1.9 % (0-0.5); Lymphocytes Absolute Auto 1.93 K/mm3 (0.9-3.2); Mean Corpuscular HGB Conc 32.9 g/dl (32-36); Mean Corpuscular Hemoglobin 29.5 pg (26-34); Mean Corpuscular Volume 89.8 fl (80-100); Nucleated Red Blood Cells Absolute Auto 0.000 K/mm3 (0.0-0.012); Nucleated Red Blood Cells Perc 0.0 % (0.0-0.2); Platelet Count Result 255 k/mm3 (150-375); Red Blood Count 3.52 M/mm3 (4.2-5.4); White Blood Count 11.6 K/mm3 (4.5-10.0)
[2024-10-20 11:17] LABS: Add Urine Microscopic? NO; Appearance Urine Clear (Clear); Glucose Urine UA Negative (Negative); Leukocyte Esterase Ur Negative LEU/UL (Negative); Nitrate Urine Negative (Negative); Specific Grav Ur 1.017 (1.001-1.035)
[2024-10-20 11:30] VITALS: BP 109/64; PULSE 77
[2024-10-20 11:33] LABS: Alanine Aminotransferase 14 U/L (6-35); Albumin Level 3.9 g/dL (3.5-5.1); Alkaline Phosphatase 65 U/L (38-126); Anion Gap 10 mmol/L (4-12); Aspartate Amino Transferase 21 U/L (14-36); Bilirubin,Total 0.4 mg/dL (0.2-1.3); Blood Urea Nitrogen 5 mg/dL (7-17); Calcium 9.0 mg/dL (8.4-10.2); Carbon Dioxide 20 mmol/L (22-30); Chloride 104 mmol/L (98-107); Estimated Glomerular Filt Rate > 60; Glucose 99 mg/dL (65-110); Potassium 3.8 mmol/L (3.4-5.0); Sodium 134 mmol/L (137-145); Total Protein 7.1 g/dL (6.3-8.2); Uric Acid 5.0 mg/dL (2.5-7.5)
[2024-10-20 11:45] VITALS: BP 113/68; PULSE 82
[2024-10-20 16:01] LABS: Total Protein Urine Random < 5 mg/dL; Ur Ttl Prot Creatinine Ratio < 0.04 mg/mg (0-0.20)
== END 2024-10-20 11:55 | disposition home or self-care (01) ==
LOC: ANHOBOP 10:40 → ANHOBPP 10:42
PROVIDERS: PCP Family Medicine; Visit Provider Obstetrics & Gynecology
DX: O13.9 Gestational [pregnancy-induced] hypertension without significant proteinuria, unspecified trimester (principal); Z3A.00 Weeks of gestation of pregnancy not specified
CPT/HCPCS: 36415; 80053; 81003; 82570; 84156; 84550; 85025; 99199

== ENCOUNTER 2024-10-30 17:48 | Observation (INO) | payer OTHER, SELFPAY ==
--- OUTSIDE RECORDS SUMMARY | 2024-10-30 17:05 | XMS_ITS | Clinical Summary ---
Author Organization [facility] Address [address] [place] [address] Care Team Providers Care Genetic Counselor Name Role Phone Unavailable Primary Care Provider Unavailabl e Source Comments [facility],non-owned Affiliates and Associated Physician Practices is amultiple site organization consisting of ambulatory clinics and hospital sitesin [place], [place], [place] and [place]. This disclosure is being madepursuant to the Care Everywhere program and may not contain all information available regarding this patient. Last updated 17.[facility] Health Encounters Date Type Department Care Team Description 10/10/2024 12:54 PM CDT - 10/10/2024 11:59 PM CDT Hospital Encounter [facility] [address] [place] [phone] Christian James MD Discharge Disposition: Home or [...] Contact Info) Description 11/07/2024 2:30 PM CDT Hospital Encounter [facility] [address] [place] [address] Health Maintenance Due Date Last Done Comments HIV SCREENING 10/14/2002 HEPATITIS C SCREENING 10/10/2005 DTAP/TDAP/TD VACCINES (1 - Tdap) 10/14/2006 HEPATITIS B VACCINE (1 of 3 - 19+ 3-dose series) 10/14/2006 PAP SMEAR 10/14/2008 HPV VACCINE (1 - 3-dose SCDM series) 10/14/2014 COVID-19 VACCINE ( - 2023-2 5 season) 2023 DEPRESSION SCREENING 03/12/2024 INFLUENZA VACCINE (#1) 2024 OB-ONE HOUR GLUCOSE 11/19/2024 Respiratory Syncytial Virus (RSV) Vaccine Pt: or [...] Presentation: breech Placenta: Placental site: anterior. Placental requ-qr-uotmvvik os distance 33 mm. No previa seen [...] 0 lb 14 oz EFW by Hadlock ([id number]) Head / Face / Neck Biometry: CM [...] Thorax 4-chamber view. LVOT view. 3-vessel view. 6-nzshxc-xvvzkch view. Aortic arch view. Ductal arch view. [...] Z36.3: Encounter for screening for malformations Procedures 46879: US Preg Uterus Detailed 29265: US Preg Uterus Transvaginal eventblimp PACS Anatomical Region Laterality Modality Other 10/10/2024 1:03 PM CDT Leonard De La Fuente MD [facility] ORDERABLES Edited Result - Final from Last 3 Months Insurance
[2024-10-30 17:16] VITALS: BP 114/68; PULSE 91
[2024-10-30 17:31] VITALS: BP 118/60; PULSE 85
[2024-10-30 17:49] VITALS: BMI 33.3
--- NOTE | 2024-10-30 17:49 | LDADM ---
This patient, Blanca Butterfield, was admitted to OB Post [facility] on 10/30/24 at 16:59. Plans for labor, pain management and were discussed with patient. Patient/family oriented to hospital policies and general routines including ID bracelet, bed and alarms, visiting hours, pain management, procedures, bathroom and other care routines, personal items, smoking policy, room service/diet and guest tray routines, security routines, and visiting hours. Patient/Family are encouraged to report perceived risks to care and to ask questions if they do not understand what they are told or what they should do. See OBIX for further documentation.
[2024-10-30 18:24] VITALS: PULSE 85
--- OUTSIDE RECORDS SUMMARY | 2024-10-31 07:34 | XMS_ITS | Clinical Summary ---
Author Organization [facility] Address [address] [place] [address] Care Team Providers Care Body And Fender Mechanic Apprentice Name Role Phone Unavailable Primary Care Provider Unavailabl e Source Comments [facility],non-owned Affiliates and Associated Physician Practices is amultiple site organization consisting of ambulatory clinics and hospital sitesin [place], [place], [place]. This disclosure is being madepursuant to the Care Everywhere program and may not contain all information available regarding this patient. Last updated 17.[facility] Health Encounters Date Type Department Care Team Description 10/10/2024 12:54 PM CDT - 10/10/2024 11:59 PM CDT Hospital Encounter [facility] [address] [place] [phone] Christian James MD Discharge Disposition: Home or [...] Description 11/07/2024 2:30 PM CDT Hospital Encounter [facility] [address] [place] [address] Health Maintenance Due Date Last Done Comments [...] Presentation: breech Placenta: Placental site: anterior. Placental txzz-bv-olkcyvbs os distance 33 mm. No previa seen [...] 0 lb 14 oz EFW by Hadlock ([id number]) Head / Face / Neck Biometry: CM [...] Thorax 4-chamber view. LVOT view. 3-vessel view. 2-ayhhrq-zyveswr view. Aortic arch view. Ductal arch view. [...] Z36.3: Encounter for screening for malformations Procedures 84083: US Preg Uterus Detailed [id number]: US Preg Uterus Transvaginal ProofPilot PACS Anatomical Region Laterality Modality Other 10/10/2024 1:03 PM CDT Leonard De La Fuente MD [facility] ORDERABLES Edited Result - Final from Last 3 Months Insurance
--- NOTE | 2024-11-03 08:06 | PM.OBTRLD ---
OB - Triage/Final Diagnosis Visit Information Date of evaluation: 10/31/24 Reason for evaluation: threatened labor Comments/Additional reasons for admission: I have assessed the risk for this patient, Blanca Butterfield, and determined that she would benefit from observation care.
== END 2024-10-30 18:00 | disposition home or self-care (01) ==
PROVIDERS: Admitting Provider Student in an Organized Health Care Education/Training Program; PCP Family Medicine; Visit Provider Student in an Organized Health Care Education/Training Program
DX: O47.02 False labor before 37 completed weeks of gestation, second trimester (principal); Z3A.23 23 weeks gestation of pregnancy
CPT/HCPCS: 59025; 99199

== ENCOUNTER 2024-11-08 09:31 | Outpatient (CLI) | payer OTHER, SELFPAY ==
--- OUTSIDE RECORDS SUMMARY | 2024-11-07 14:27 | XMS_ITS | Encounter Summary ---
Author Organization [facility] Address [address] [place] [address] Care Team Providers Care Hand Brush Filler Name Role Phone Unavailable Primary Care Provider Unavailabl e Reason for Referral * (Routine) - Open Specialty Diagnoses / Procedures Referred By Contac t Referred To Contact Diagnoses 23 weeks gestation of (HCC) Encounter for follow-up ultrasound of anatomy (HCC) Procedures Sonogram - Complete Leonard Haro MD [address] [place] [address] Phone: tel: fax: Referral ID Status Reason Start Date Expiration Date Visits Re quested Visits Authorized [id number] Open 10/27/2024 10/27/2025 1 1 * (Routine) - Open Specialty Diagnoses / Procedures Referred By Contac t Referred To Contact Diagnoses 23 weeks gestation of (HCC) Encounter for follow-up ultrasound of anatomy (HCC) Procedures Sonogram - Complete Leonard Haro MD [address] [place] [address] Phone: tel: fax: Referral ID Status Reason Start Date Expiration Date Visits Re quested Visits Authorized [id number] Open 10/27/2024 10/27/2025 1 1 Reason for Visit * Reason Comments Ultrasound * (Routine) - Open Specialty Diagnoses / Procedures Referred By Contac t Referred To Contact Diagnoses 23 weeks gestation of (HCC) Encounter for follow-up ultrasound of anatomy (HCC) Procedures Sonogram - Complete Leonard Haro MD [address] [place] [address] Phone: tel: fax: Referral ID Status Reason Start Date Expiration Date Visits Re quested Visits Authorized [id number] Open 10/27/2024 10/27/2025 1 1 Encounter Details Date Type Department Care Team (Latest Contact Info) Description 11/07/2024 2:27 PM CDT - 11/07/2024 11:59 PM CDT Hospital Encounter [facility] [address] [place] [id number] Davion DO Oh [address] [facility] [address] [place] [address] MALE IMPERSONATOR Discharge Disposition: Home or Self Care Social History Tobacco Use Types Packs/Day Years Used Date Smoking Tobacco: Never Assessed Estimated Date of Delivery Comme nts Yes 02/25/2025 Based on last me nstrual period of 05/21/2024 Sex and Gender Information Value Date Recorded Sex Assigned at Not on file Legal Sex Female 1:03 PM CDT Gender Identity Not on file Sexual Orientation Not on file documented as of this encounter Plan of Treatment Upcoming Encounters Date Type Department Care Team (Late st Contact Info) Description 12/05/2024 2:30 PM CDT Appointment [facility] [address] [place] [id number] documented as of this encounter Procedures Procedure Name Priority Date/Time Associated Diagnosis Comments SONOGRAM - COMPLETE Routine 11/07/2024 2 :50 PM CDT 23 weeks gestation of (HCC) Encounter for follow-up ultrasound of anatomy (HCC) documented in this encounter Results * Sonogram - Complete (11/07/2024 2:50 PM CDT) Linked Results Indication ======== anatomy evaluation Previous stillbirth or IUFD at 20 weeks noted at the time of anatomical survey Maternal obesity complicating , class 1 (BMI 30.0 - 34.9) History ====== OB History 2. Para 1 [id number] 1. antepartum stillbirth 2011. Gest. age 20 w + 2 d. Sex of child: male. Details: no FHT's at anatomy scan Vaginal delivery Lab Tests Test Date Result NIPT Low risk Maternal Assessment Physical Exam Height 168 cm, 5 ft 6 in. Weight 103 kg, 228 lb. Initial weight 91 kg, 200 lb. BMI 36.80 kg/m . Initial BMI 32.28 kg/m . Weight gain 13 kg, 28 lb Method ====== Transabdominal ultrasound. View: Suboptimal view: limited by position ========= Stanton . Number of fetuses: 1 Dating ====== Date Details Gest. age SANGEETHA LMP 05/21/2024 24 w + 2 d 02/25/2025 Stated SANGEETHA 24 w + 2 d 02/25/2025 U/S 11/07/2024 based upon AC, BPD, Femur, HC 25 w + 3 d 02/17/2025 Assigned dating based on the LMP, selected on 10/10/2024 24 w + 2 d 02/25/2025 General Evaluation Cardiac activity present. FHR 130 bpm. Presentation: cephalic Placenta: Placental site: anterior no previa Umbilical cord: Cord vessels: 3 vessel cord - previously documented. Insertion site: inferior marginal insertion Amniotic fluid: Amount of AF: normal. MVP 6.1 cm Biometry BPD 60.3 mm 24w 4d 54% Hadlock HC 226.8 mm 24w 5d 47% Hadlock AC 221.2 mm 26w 4d 95% Hadlock Femur 47.3 mm 25w 6d 82% Hadlock Humerus 43.7 mm 26w 0d 90% Tank HC / AC 1.03 Weight Calculation: EFW 877 g 97% Hadlock EFW (lb,oz) 1 lb 15 oz EFW by Hadlock ([id number]) LGA Growth Overview Exam date GA BPD (mm) HC (mm) AC (mm) FL (mm) HL (mm) EFW (g) 10/10/2024 20w 2d 47.7 56% 178.9 44% 160.8 73% 34.8 66% 35.8 98% 391 81% 11/07/2024 24w 2d 60.3 54% 226.8 47% 221.2 95% 47.3 82% 43.7 90% 877 97% Anatomy The following structures appear abnormal: Abdomen Kidneys: left renal pelvis dilation measures 4.6 mm, right renal pelvis dilation measures 4.5 mm. The following structures appear normal: Face Lips. Profile. Nose. Nasal bone. Orbits. Heart / Thorax 4-chamber view. LVOT view. 3-vessel view. 9-igkkvt-thgqdgy view. Aortic arch view. Bicaval view. Great vessels. Right lung. Left lung. Diaphragm. Abdomen Stomach. Bladder. Extremities / Skeleton Hands. The following structures could not be adequately visualized: Heart / Thorax Ductal arch view. The following structures were documented previously: Head / Neck Cranium. Lateral ventricles. Choroid plexus. Midline falx. Cavum septi pellucidi. Cerebellum. Cisterna magna. Thalami. Nuchal fold. Heart / Thorax RVOT view. Situs. Abdomen Cord insertion. Bowel. Genitals. Spine Cervical spine. Thoracic spine. Lumbar spine. Sacral spine. Extremities / Skeleton Arms. Legs. Feet. sex: female. Impression ========= Here today for the completion of the anatomical survey. She is AMA and she had opted for NIPT which was reported as low risk. Single, live, intrauterine at 24w 2d The size is suspected LGA. The amniotic fluid volume is normal. Normal appearing anterior placenta with marginal cord insertion. Bilateral mild UTD A1 No other major malformations were seen within the limitations of ultrasound. But the ductal arch remains suboptimally visualized due to positioning. Comment ======== The biometry is showing good interval growth in the estimated weight is suspected LGA which may represent either constitutionally large fetus or gestational diabetes awaiting patient's glucose screen. The amniotic fluid is normal and there was good movements noted. Normal appearing posterior placenta with a marginal cord insertion. A marginal cord insertion has been associated with low weight and would recommend serial growth ultrasounds with the advancing gestation. The remainder of the anatomical survey showed no gross abnormalities except the ductal arch was suboptimally visualized due to positioning. In addition there was evidence of bilateral UTD (urinary tract dilatation) of both kidneys. It is consistent with mild UTD A1 (right renal pelvis measures 4.5 mm in the left renal pelvis measures 4.6 mm. The bladder appeared to be normal and no other abnormalities were noted. UTD is usually transient and should spontaneously resolve with advancing gestation. However in certain cases in my persist or worsen and will need renal ultrasound and depending on those findings also determine need for Pediatric Urology evaluation. In children this is also known as reflex ( VUR- vesicoureteral will reflux) and is usually managed expectantly with prophylactic antibiotics and surgical intervention is usually reserve for refractory or worsening cases. Other causes may include obstructive uropathy but none of those were noted on today's ultrasound. Both ultrasound and screening/testing have their limitations in detecting all congenital anomalies and chromosomal abnormalities/inher ited disorders or genetic syndromes. Follow-up ======== To return in 4 weeks for interval growth and to complete anatomic survey (ductal arch) along with reevaluation of the kidneys. Depending on those findings will also determine further management. Thereafter, due to her AMA status potential for poor outcome along with marginal cord insertion she will continue with serial growth ultrasounds every 4-6 weeks and depending on those findings will determine need for additional testing. Thank you for allowing us to partake in your patient's care. Coding ====== Diagnoses O99.212, E66.811: Obesity complicating , class 1 (BMI 30.0 - 34.9) O09.292: Supervision of with other poor reproductive or obstetric history Z36.3: Encounter for screening for malformations Procedures 87028: US Preg Uterus Follow Up [employer] PACS Anatomical Region Laterality Modality Other 11/07/2024 2:50 PM CDT us Leonard De La Fuente MD [facility] ORDERABLES Edited Result - Final documented in this encounter Visit Diagnoses Diagnosis 23 weeks gestation of (HCC)- Primary state, incidental Encounter for follow-up ultrasound of anatomy (HCC) documented in this encounter
[2024-11-08 11:12] LABS: Hematocrit 29.6 % (37.0-47.0); Hemoglobin 9.9 g/dL (12.0-15.0); Mean Corpuscular HGB Conc 33.4 g/dl (32-36); Mean Corpuscular Hemoglobin 29.6 pg (26-34); Mean Corpuscular Volume 88.6 fl (80-100); Platelet Count Result 255 k/mm3 (150-375); Red Blood Count 3.34 M/mm3 (4.2-5.4); White Blood Count 9.4 K/mm3 (4.5-10.0)
[2024-11-08 11:29] LABS: Glucose 1 Hour PP 50gm Dose 127 mg/dL
[2024-11-08 11:57] LABS: Syphilis IgG/IgM Antibody Non-Reactive (Nonreactive)
[2024-11-08 12:11] LABS: HIV 1/2 Ab P24 Ag Result Negative (Negative)
== END 2024-11-08 09:32 | disposition home or self-care (01) ==
PROVIDERS: PCP Family Medicine; Visit Provider Obstetrics & Gynecology
DX: Z34.90 Encounter for supervision of normal pregnancy, unspecified, unspecified trimester (principal); Z3A.00 Weeks of gestation of pregnancy not specified
CPT/HCPCS: 36415; 82947; 85027; 86593; 86703; G0432

== ENCOUNTER 2024-11-17 05:58 | Emergency (ER) | payer OTHER, SELFPAY ==
[2024-11-17 06:04] VITALS: BP 124/61; PULSE 87; RESP 87; TEMP 36.3; O2SAT 100
[2024-11-17 06:09] VITALS: PULSE 88
[2024-11-17] MEDS: ONDANSETRON INJ 4 MG/2 ML VIAL IV PUSH (06:33)
[2024-11-17] MEDS: SODIUM CHLORIDE 0.9% IV 1,000 ML 999 ML IV CONT (06:34)
--- NOTE | 2024-11-17 06:37 | ED.DIZZY ---
HPI - Dizziness General Chief Complaint: Dizziness <Kiara Thomas MD - Last Filed: 11/17/24 06:46> Stated Complaint: n/v, dizziness, 26weeks preg <Kiara Thomas MD - Last Filed: 11/17/24 06:46> Time Seen by Provider: 11/17/24 06:10 <Kiara Thomas MD - Last Filed: 11/17/24 06:46> History of Present Illness HPI Narrative: Patient is a 39-year-old female who presents the emergency department this morning complaining of nausea, vomiting and lightheadedness/ dizziness. Patient describes a room spinning sensation specially when she gets up. Patient states that she is approximately 26 weeks and follows up with Dr. Costa. Patient states symptoms started a few days ago and feels as though she is dehydrated. This is the patient's 4th , patient has had 2 miscarriages and a stillbirth in 2011. Denies any abdominal pain, vaginal bleeding or discharge. Denies any distal symptoms or concerns. <Kiara Thomas MD - Last Filed: 11/17/24 06:46> Related Data Home Medications: Home Medications ?Medication ?Instructions ?Recorded ?Confirmed ?Last Taken ?Type bupropion HCl 150 mg 24 hr tablet, 150 mg PO QAM 04/18/22 11/06/24 12/10/22 History extended release (Wellbutrin XL) <Kiara Thomas MD - Last Filed: 11/17/24 06:46> Allergies/Adverse Reactions: Allergies Allergy/AdvReac Type Severity Reaction Status Date / Time pear Allergy Unknown Unknown Verified 11/17/24 06:03 Penicillins AdvReac Severe Nausea Verified 11/17/24 06:03 <Kiara Thomas MD - Last Filed: 11/17/24 06:46> Review of Systems Review of Systems: All systems are reviewed and are negative unless stated otherwise in the HPI. <Kiara Thomas MD - Last Filed: 11/17/24 06:46> PMFSH Past Medical History Medical History: Medical History 4 weeks gestation of UTI (urinary tract infection) January 2024 History of miscarriage 20w2d GA; stillborn; 2011 Depression Seasonal allergies <Kiara Thomas MD - Last Filed: 11/17/24 06:46> Surgical History Surgical History: Surgical History History of appendectomy <Kiara Thomas MD - Last Filed: 11/17/24 06:46> Family History Family History: Family History Grandparent Diabetes mellitus Hypertension Heart disease Grandparent Breast cancer Grandparent No problems noted. 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 HEENT: PERRL, no rhinorrhea, no post nasal drip, oropharynx clear. Neck: Trachea midline, no JVD, no lymphadenopathy. Cardiovascular: Regular rate and rhythm, no murmurs, rubs or gallops, no peripheral edema. Respiratory: Clear to auscultation bilaterally, no tachypnea, no wheezing, no rhonchi, no rubs, no respiratory distress. Abdomen: Soft, nontender, nondistended, no rebound, no guarding, no peritoneal signs. Musculoskeletal: No joint swelling or deformity, normal muscle tone. Skin: No rashes or petechia, no signs of infection. Psychiatric: Alert and oriented, normal behavior and judgment for situation. Neurological: Alert and oriented to person, place, and time. Follows all commands. No focal deficits, speech is clear and fluent. <Kiara Thomas MD - Last Filed: 11/17/24 06:46> Course Vital Signs Vital signs: Vital Signs Temperature 97.3 F L 11/17/24 06:04 Pulse Rate 87 11/17/24 06:04 Respiratory Rate 87 H 11/17/24 06:04 Blood Pressure 124/61 11/17/24 06:04 Pulse Oximetry 100 11/17/24 06:04 Oxygen Delivery Room Air 11/17/24 06:04 Temperature 97.6 F 11/17/24 10:07 Pulse Rate 65 11/17/24 10:07 Respiratory Rate 16 11/17/24 10:07 Blood Pressure 112/58 L 11/17/24 10:07 Pulse Oximetry 100 11/17/24 10:07 Oxygen Delivery Room Air 11/17/24 06:04 <Kiara Thomas MD - Last Filed: 11/17/24 06:46> Vital Signs Temperature 97.3 F L 11/17/24 06:04 Pulse Rate 87 11/17/24 06:04 Respiratory Rate 87 H 11/17/24 06:04 Blood Pressure 124/61 11/17/24 06:04 Pulse Oximetry 100 11/17/24 06:04 Oxygen Delivery Room Air 11/17/24 06:04 Temperature 97.6 F 11/17/24 10:07 Pulse Rate 65 11/17/24 10:07 Respiratory Rate 16 11/17/24 10:07 Blood Pressure 112/58 L 11/17/24 10:07 Pulse Oximetry 100 11/17/24 10:07 Oxygen Delivery Room Air 11/17/24 06:04 <Rosendo Main MD - Last Filed: 11/17/24 17:58> MDM - Dizziness MDM Narrative Medical decision making narrative: The patient was evaluated by myself in the emergency department. History is obtained from patient who is an independent historian and physical exam was performed. External medical records were reviewed at this time. IV was established and pertinent tests were ordered. Patient was administered 1 L IV fluid bolus with normal saline 4 mg of IV Zofran. Differential diagnosis considerations include hyperemesis gravidarum, dehydration, electrolyte derangements, acute viral syndrome, acute kidney injury. Comorbidities impacting this visit include current second trimester . I have evaluated and discussed social determinants of health with the patient that could potentially impact subsequent diagnosis and treatment plans. Patient was signed out to AM ED physician pending remainder of the workup. <Kiara Thomas MD - Last Filed: 11/17/24 06:46> The patient was evaluated by myself in the emergency department. History is obtained from patient who is an independent historian and physical exam was performed. External medical records were reviewed at this time. IV was established and pertinent tests were ordered. Patient was administered 1 L IV fluid bolus with normal saline 4 mg of IV Zofran. Differential diagnosis considerations include hyperemesis gravidarum, dehydration, electrolyte derangements, acute viral syndrome, acute kidney injury. Comorbidities impacting this visit include current second trimester . I have evaluated and discussed social determinants of health with the patient that could potentially impact subsequent diagnosis and treatment plans. Patient was signed out to AM ED physician pending remainder of the workup. --- Patient care was signed out to me by the overnight physician and on re-evaluation patient does feel improved. Patient is tolerating p.o.. Patient will be discharged home to have close follow-up with her OB Gyne and her primary care physician. <Rosendo Main MD - Last Filed: 11/17/24 17:58> Lab Data Result diagrams: 11/17/24 06:44 11/17/24 06:44 <Kiara Thomas MD - Last Filed: 11/17/24 06:46> Labs: Lab Results 11/17/24 11/17/24 Range/Units 06:44 07:26 WBC 11.9 H (4.5-10.0) K/mm3 RBC 3.46 L (4.2-5.4) M/mm3 Hgb 10.1 L (12.0-15.0) g/dL Hct 30.1 L (37.0-47.0) % MCV 87.0 (80-100) fl MCH 29.2 (26-34) pg MCHC 33.6 (32-36) g/dl RDW 13.7 (11.5-14.5) % Plt Count 275 (150-375) k/mm3 MPV 9.4 (7.4-10.4) fl Immature Gran % (Auto) 2.2 H (0-0.5) % Neut % (Auto) 69.9 (45.5-73.1) % Lymph % (Auto) 22.6 (18.3-44.2) % [place] % (Auto) 4.4 (2.6-8.5) % Eos % (Auto) 0.6 (0-4.4) % Baso % (Auto) 0.3 (0.2-1.2) % Lymph # (Auto) 2.69 (0.9-3.2) K/mm3 [place] # (Auto) 0.5 (0.1-0.6) K/mm3 Eos # (Auto) 0.1 (0-0.3) K/mm3 Baso # (Auto) 0.0 (0.0-0.1) K/mm3 Abs Immat Gran (auto) 0.26 H (0.00-0.031) K/mm3 Absolute Neuts (auto) 8.3 H (1.3-6.7) K/mm3 Absolute Nucleated RBC 0.000 (0.0-0.012) K/mm3 Nucleated RBC % 0.0 (0.0-0.2) % Sodium 131 L (137-145) mmol/L Potassium 3.4 (3.4-5.0) mmol/L Chloride 104 (98-107) mmol/L Carbon Dioxide 19 L (22-30) mmol/L Anion Gap 8 (4-12) mmol/L BUN 9 (7-17) mg/dL Creatinine 0.48 L (0.7-1.0) mg/dL Estim Creat Clear Calc Not Reportable Estimated GFR > 60 (59 - ) Glucose 143 H (65-110) mg/dL Calcium 9.0 (8.4-10.2) mg/dL Magnesium 1.5 L (1.6-2.3) mg/dL Total Bilirubin 0.4 (0.2-1.3) mg/dL AST 23 (14-36) U/L ALT 14 (6-35) U/L Alkaline Phosphatase 72 (38-126) U/L Total Protein 6.7 (6.3-8.2) g/dL Albumin 3.7 (3.5-5.1) g/dL Urine Color Yellow (Yellow) Urine Appearance Clear (Clear) Urine pH 6.0 (5.0-9.0) Ur Specific [place] 1.017 (1.001-1.035) Urine Protein Negative (Negative) mg/dL Urine Glucose (UA) Negative (Negative) mg/dL Urine Ketones 1+ H (Negative) mg/dL Ur Blood (Man) Negative (Negative) Urine Nitrate Negative (Negative) Urine Bilirubin Negative (Negative) Urine Urobilinogen 0.2 (<2.0) mg/dL Leukocyte Esterase Rfl Negative (Negative) SHREYA/UL <Kiara Thomas MD - Last Filed: 11/17/24 06:46> Lab Results 11/17/24 11/17/24 Range/Units 06:44 07:26 WBC 11.9 H (4.5-10.0) K/mm3 RBC 3.46 L (4.2-5.4) M/mm3 Hgb 10.1 L (12.0-15.0) g/dL Hct 30.1 L (37.0-47.0) % MCV 87.0 (80-100) fl MCH 29.2 (26-34) pg MCHC 33.6 (32-36) g/dl RDW 13.7 (11.5-14.5) % Plt Count 275 (150-375) k/mm3 MPV 9.4 (7.4-10.4) fl Immature Gran % (Auto) 2.2 H (0-0.5) % Neut % (Auto) 69.9 (45.5-73.1) % Lymph % (Auto) 22.6 (18.3-44.2) % [place] % (Auto) 4.4 (2.6-8.5) % Eos % (Auto) 0.6 (0-4.4) % Baso % (Auto) 0.3 (0.2-1.2) % Lymph # (Auto) 2.69 (0.9-3.2) K/mm3 [place] # (Auto) 0.5 (0.1-0.6) K/mm3 Eos # (Auto) 0.1 (0-0.3) K/mm3 Baso # (Auto) 0.0 (0.0-0.1) K/mm3 Abs Immat Gran (auto) 0.26 H (0.00-0.031) K/mm3 Absolute Neuts (auto) 8.3 H (1.3-6.7) K/mm3 Absolute Nucleated RBC 0.000 (0.0-0.012) K/mm3 Nucleated RBC % 0.0 (0.0-0.2) % Sodium 131 L (137-145) mmol/L Potassium 3.4 (3.4-5.0) mmol/L Chloride 104 (98-107) mmol/L Carbon Dioxide 19 L (22-30) mmol/L Anion Gap 8 (4-12) mmol/L BUN 9 (7-17) mg/dL Creatinine 0.48 L (0.7-1.0) mg/dL Estim Creat Clear Calc Not Reportable Estimated GFR > 60 (59 - ) Glucose 143 H (65-110) mg/dL Calcium 9.0 (8.4-10.2) mg/dL Magnesium 1.5 L (1.6-2.3) mg/dL Total Bilirubin 0.4 (0.2-1.3) mg/dL AST 23 (14-36) U/L ALT 14 (6-35) U/L Alkaline Phosphatase 72 (38-126) U/L Total Protein 6.7 (6.3-8.2) g/dL Albumin 3.7 (3.5-5.1) g/dL Urine Color Yellow (Yellow) Urine Appearance Clear (Clear) Urine pH 6.0 (5.0-9.0) Ur Specific [place] 1.017 (1.001-1.035) Urine Protein Negative (Negative) mg/dL Urine Glucose (UA) Negative (Negative) mg/dL Urine Ketones 1+ H (Negative) mg/dL Ur Blood (Man) Negative (Negative) Urine Nitrate Negative (Negative) Urine Bilirubin Negative (Negative) Urine Urobilinogen 0.2 (<2.0) mg/dL Leukocyte Esterase Rfl Negative (Negative) SHREYA/UL <Rosendo Main MD - Last Filed: 11/17/24 17:58> Discharge Plan Discharge Clinical Impression: Nausea & vomiting <Kiara Thomas MD - Last Filed: 11/17/24 06:46> Patient Disposition: Home <Kiara Thomas MD - Last Filed: 11/17/24 06:46> Condition: Improved <Kiara Thomas MD - Last Filed: 11/17/24 06:46> Instructions: Antibiotic Form, Hyperemesis Gravidarum (ED), Clear Liquid Diet (ED) <Kiara Thomas MD - Last Filed: 11/17/24 06:46> Additional Instructions: Home medications for nausea control. Clear liquid diet as needed for the next few days and advance to a bland diet as tolerated. Have close follow-up with OB Gyne. If you have any worsening symptoms then please call or return to the emergency department. <Kiara Thomas MD - Last Filed: 11/17/24 06:46> Patient Language: [place] <Kiara Thomas MD - Last Filed: 11/17/24 06:46> Prescriptions: No Action bupropion HCl [Wellbutrin XL] 150 mg tablet extended release 24 hr 150 mg PO QAM ondansetron 4 mg tablet,disintegrating 4 mg PO Q8H PRN (Reason: nausea and vomiting) Qty: 7 0RF PNV no.95-ferrous fumarate-FA [ Formula] 28 mg iron- 800 mcg tablet 1 tablet PO DAILY Qty: 30 0RF <Kiara Thomas MD - Last Filed: 11/17/24 06:46> Follow-up/Referrals: Elena Turcios MD [Primary Care Provider, Family Practice] <Kiara Thomas MD - Last Filed: 11/17/24 06:46>
--- OUTSIDE RECORDS SUMMARY | 2024-11-17 06:47 | XMS_ITS | Clinical Summary ---
Author Organization [facility] Address [address] [place] [address] Care Team Providers Care Medical Laboratory Technologist Name Role Phone Unavailable Primary Care Provider Unavailabl e Source Comments [facility],non-owned Affiliates and Associated Physician Practices is amultiple site organization consisting of ambulatory clinics and hospital sitesin [place], [place], [place] and [place]. This disclosure is being madepursuant to the Care Everywhere program and may not contain all information available regarding this patient. 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 Discharge Disposition: Home or Self Care 10/10/2024 12:54 PM CDT - 10/10/2024 11:59 PM CDT Hospital Encounter [facility] [address] [place] [id number] Christian James MD Discharge Disposition: Home or [...] Info) Description 12/05/2024 2:30 PM CDT Appointment [facility] [address] [place] [id number] Health Maintenance Due Date Last Done Comments HIV SCREENING 10/14/2002 HEPATITIS C SCREENING 10/10/2005 DTAP/TDAP/TD VACCINES (1 - Tdap) 10/14/2006 HEPATITIS B VACCINE (1 of 3 - 19+ 3-dose series) 10/14/2006 PAP SMEAR 10/14/2008 HPV VACCINE (1 - 3-dose SCDM series) 10/14/2014 DEPRESSION SCREENING 03/12/2024 COVID-19 VACCINE (1 - 2023-2 5 season) 2024 INFLUENZA VACCINE (#1) 2024 OB-ONE HOUR GLUCOSE 11/19/2024 OB-RHOGAM INJECTION 12/03/2024 Respiratory Syncytial Virus (RSV) Vaccine Pt: or [...] Encounter for follow-up ultrasound of anatomy (HCC) SONOGRAM - COMPLETE Routine 10/10/2024 1 :03 PM CDT Encounter for anatomic survey (HCC) 20 weeks gestation of (HCC) from Last 3 Months Results * Sonogram - Complete (11/07/2024 2:50 PM CDT) Only the most recent of2 resultswithin the time period is included. Linked Results Indication ======== anatomy evaluation Previous [...] 1 lb 15 oz EFW by Hadlock ([id number]) LGA Growth Overview Exam date GA BPD [...] Thorax 4-chamber view. LVOT view. 3-vessel view. 8-dxxczt-gzhnvos view. Aortic arch view. Bicaval view. Great [...] Z36.3: Encounter for screening for malformations Procedures 93094: US Preg Uterus Follow Up [employer] [place] PACS Anatomical Region Laterality Modality Other 11/07/2024 2:50 PM CDT us Leonard De La Fuente MD [facility] ORDERABLES Edited Result - Final from Last 3 Months Insurance
[2024-11-17 06:50] LABS: Hematocrit 30.1 % (37.0-47.0); Hemoglobin 10.1 g/dL (12.0-15.0); Immature Granulocyte Percent A 2.2 % (0-0.5); Lymphocytes Absolute Auto 2.69 K/mm3 (0.9-3.2); Mean Corpuscular HGB Conc 33.6 g/dl (32-36); Mean Corpuscular Hemoglobin 29.2 pg (26-34); Mean Corpuscular Volume 87.0 fl (80-100); Nucleated Red Blood Cells Absolute Auto 0.000 K/mm3 (0.0-0.012); Nucleated Red Blood Cells Perc 0.0 % (0.0-0.2); Platelet Count Result 275 k/mm3 (150-375); Red Blood Count 3.46 M/mm3 (4.2-5.4); White Blood Count 11.9 K/mm3 (4.5-10.0)
[2024-11-17 07:01] LABS: Alanine Aminotransferase 14 U/L (6-35); Albumin Level 3.7 g/dL (3.5-5.1); Alkaline Phosphatase 72 U/L (38-126); Anion Gap 8 mmol/L (4-12); Aspartate Amino Transferase 23 U/L (14-36); Bilirubin,Total 0.4 mg/dL (0.2-1.3); Blood Urea Nitrogen 9 mg/dL (7-17); Calcium 9.0 mg/dL (8.4-10.2); Carbon Dioxide 19 mmol/L (22-30); Chloride 104 mmol/L (98-107); Estimated Glomerular Filt Rate > 60; Glucose 143 mg/dL (65-110); Magnesium 1.5 mg/dL (1.6-2.3); Potassium 3.4 mmol/L (3.4-5.0); Sodium 131 mmol/L (137-145); Total Protein 6.7 g/dL (6.3-8.2)
[2024-11-17] MEDS: MAGNESIUM SULF 1 GM/D5W 100 ML 1 GM/100 ML BAG IVPB (07:21)
[2024-11-17 07:26] VITALS: BP 132/73; PULSE 81; RESP 19; TEMP 36.8; O2SAT 100
[2024-11-17 07:33] LABS: Add Urine Microscopic? NO; Appearance Urine Clear (Clear); Glucose Urine UA Negative (Negative); Leukocyte Esterase Ur Negative LEU/UL (Negative); Nitrate Urine Negative (Negative); Specific Grav Ur 1.017 (1.001-1.035)
[2024-11-17 09:08] VITALS: BP 109/61; PULSE 79; RESP 19; O2SAT 100
[2024-11-17 10:07] VITALS: BP 112/58; PULSE 65; RESP 16; TEMP 36.4; O2SAT 100
== END 2024-11-17 10:08 | disposition home or self-care (01) ==
PROVIDERS: Emergency Provider Emergency Medicine; PCP Family Medicine
DX: O21.2 Late vomiting of pregnancy (principal); Z3A.26 26 weeks gestation of pregnancy
CPT/HCPCS: 36415; 80053; 81003; 83735; 85025; 96361; 96365; 96375; 99284; J2405; J3475; J7030

== ENCOUNTER 2025-02-09 16:33 | Outpatient (RCR) | payer OTHER, SELFPAY ==
[2025-01-14 16:00] VITALS: BP 111/67; PULSE 82
[2025-01-21 17:50] VITALS: BP 125/81; PULSE 81
[2025-01-30 17:37] VITALS: BP 128/83; PULSE 123
[2025-01-30 17:38] LABS: HIV 1/2 Ab P24 Ag Result Negative (Negative)
--- NOTE | ~2025-02-09 | US_ITS ---
EXAMINATION: Biophysical profile, uterus OB limited: DATE: 01/30/2025 INDICATION: 39-year-old female with prior history of loss. Expected date of delivery on 02/25/2025. TECHNIQUE: Ultrasound pelvis, biophysical profile score including amniotic fluid index. COMPARISON: Prior ultrasound examinations are not available for comparison. FINDINGS: Live fetus in cephalic presentation, 36+ weeks of gestational age. Biophysical profile score of 8/8 with 2 points for breathing, movement, tone and fluid volume. Amniotic fluid index 19.5 cm. Anterior placenta. Cervix was not evaluated. IMPRESSION: 1. Limited evaluation due to lack of prior ultrasound examinations for comparison. 2. Single live fetus 36+ weeks of established gestational age in cephalic presentation. 3. Biophysical profile score of 8/8. Amniotic fluid index of 19.5 cm. heart rate 118 bpm. Reviewed, dictated and finalized at location T. UTIVE SECRETARY IMPRESSION: 1. Limited evaluation due to lack of prior ultrasound examinations for comparis on. 2. Single live fetus 36+ weeks of established gestational age in cephalic prese ntation. 3. Biophysical profile score of 8/8. Amniotic fluid index of 19.5 cm. hea rt rate 118 bpm.
[2025-02-09 17:06] VITALS: BP 123/82; PULSE 89
== END 2025-02-28 11:40 | disposition other institution (70) ==
LOC: ANHOBOP 16:33
PROVIDERS: Visit Provider Obstetrics & Gynecology
DX: O09.293 Supervision of pregnancy with other poor reproductive or obstetric history, third trimester (principal); Z3A.34 34 weeks gestation of pregnancy
CPT/HCPCS: 36415; 59025; 76819; 86703; G0432

== ENCOUNTER 2025-02-18 05:28 | Inpatient (IN) | payer OTHER, SELFPAY ==
[2025-02-18] VITALS (214 sets, daily range): BP systolic 98–157; BP diastolic 53–98; PULSE 56–113; TEMP 36.7–36.9; O2SAT 94–100; BMI 34.4; BMI 34.7
[2025-02-18] MEDS: LACTATED RINGERS 1,000 ML 125 ML IV CONT ×2 (06:50→17:45)
--- NOTE | 2025-02-18 06:52 | P.PNAN_ITS ---
Anes - Initial Pre Proc Eval Procedure: labor epidural Date/Time: 02/18/25 06:52 Surgeon: Fam Costa MD Pre Op Diagnosis: labor pain Pre Op Diagnosis: external version Patient Data Age: 39 Gender: F Height: 1.68 m Weight: 97.6 kg Last Vital Signs Pulse 73 02/18/25 05:48 BP 124/79 02/18/25 05:48 Allergies Allergy/AdvReac Type Severity Reaction Status Date / Time pear Allergy Unknown Unknown Verified 02/18/25 06:50 Penicillins AdvReac Severe Nausea Verified 02/18/25 06:50 Home Medications ?Medication ?Instructions ?Recorded ?Confirmed ?Type ondansetron 4 mg disintegrating 4 mg PO Q8H PRN nausea and 01/13/24 02/18/25 Rx tablet vomiting #7 tabs vit no.95-ferrous 1 tablet PO DAILY #30 tabs 01/13/24 02/18/25 Rx fumarate 28 mg-folic acid 800 mcg tablet ( Formula) bupropion HCl 150 mg 24 hr tablet, 150 mg PO QAM #30 t abs 12/02/24 02/18/25 Rx extended release (Wellbutrin XL) Laboratory Tests 02/18/25 06:18 WBC Pending RBC Pending Hgb Pending Hct Pending MCV Pending MCH Pending MCHC Pending RDW Pending Plt Count Pending MPV Pending Blood Type Pending Antibody Screen Pending Patient hx anesthesia problems: none Family hx anesthesia problems: none Results Review: All pre-operative results and documents have been reviewed as part of the pre- operative evaluation. [facility] Past Medical History Medical History 4 weeks gestation of UTI (urinary tract infection) January 2024 History of miscarriage 20w2d GA; stillborn; 2011 Depression Seasonal allergies Surgical History Surgical History History of appendectomy Family History Family History Grandparent Diabetes mellitus Heart disease Hypertension Grandparent Breast cancer Grandparent 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 Gender identity (if verbalized by the patient): Female Sexual Orientation (if Verbalized by the Patient): Straight or Heterosexual Spiritual care concerns: No Agree to blood products: Yes Anes - Eval Final PreProcedure Day of Procedure 02/18/25 06:52 Patient weight: obese ASA classification: II Anesthetic plan: proceed Anesthesia type and monitoring: regional epidural and standard monitoring Results Review: All pre-operative results and documents have been reviewed as part of the pre- operative evaluation. Informed Consent: The patient's anesthetic plan and its attendant risks and benefits were discussed with the patient/family/POA. Questions were solicited and answers provided to the satisfaction of the patient/family/POA.
[2025-02-18 06:53] LABS: Hematocrit 33.1 % (37.0-47.0); Hemoglobin 11.2 g/dL (12.0-15.0); Mean Corpuscular HGB Conc 33.8 g/dl (32-36); Mean Corpuscular Hemoglobin 29.2 pg (26-34); Mean Corpuscular Volume 86.2 fl (80-100); Platelet Count Result 260 k/mm3 (150-375); Red Blood Count 3.84 M/mm3 (4.2-5.4); White Blood Count 9.8 K/mm3 (4.5-10.0)
[2025-02-18 07:25] LABS: Syphilis IgG/IgM Antibody Non-Reactive (Nonreactive)
--- NOTE | 2025-02-18 07:40 | LDADM ---
This patient, Blanca Butterfield, was admitted to OB Room 116 on 02/18/25 at 05:28. Plans for ECV, section,labor, pain management and were discussed with patient. Patient/family oriented to hospital policies and general routines including ID bracelet, bed and alarms, visiting hours, pain management, procedures, bathroom and other care routines, personal items, smoking policy, room service/diet and guest tray routines, security routines, and visiting hours. Patient/Family are encouraged to report perceived risks to care and to ask questions if they do not understand what they are told or what they should do. See OBIX for further documentation.
--- NOTE | 2025-02-18 08:54 | PM.IMHP2 ---
H&P: HPI History of Present Illness Date/Time: 02/18/25 08:54 Chief Complaint: Here for ECV Narrative: 39 y/o at 39 weeks with baby in variable presentation, here for ECV and induction of labor vs primary . She has a h/o midtrimester IUFD with induction of labor and of a 9oz stillborn male infant at 20 weeks. This has been otherwise uncomplicated. NIPT neg. Review of Systems Review of Systems: All systems reviewed & are unremarkable except as noted in HPI and below PMFSH Past Medical History Medical History 4 weeks gestation of UTI (urinary tract infection) January 2024 History of miscarriage 20w2d GA; stillborn; 2011 Depression Seasonal allergies Surgical History Surgical History History of appendectomy Family History Family History Grandparent Diabetes mellitus Heart disease Hypertension Grandparent Breast cancer Grandparent Social History Social History Social History: Smoking status: Never smoker Second hand tobacco smoke exposure: No Alcohol intake: never Substance use: never Lack of Transportation: No Lack of Food: Never True Current Housing: I Have Housing Concerned About Future Housing: No Difficulty Paying Gas/Electric Bills: No Difficulty Paying for Meds: No Currently Unemployed: No Education: High School Diploma/GED Difficulty w/ Childcare or Family Care: No Living arrangements: with family Occupation/Education: occupation 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[employer] Gender identity (if verbalized by the patient): Female Sexual Orientation (if Verbalized by the Patient): Straight or Heterosexual Spiritual care concerns: No Agree to blood products: Yes Meds Home Medications and Allergies Home Medications ?Medication ?Instructions ?Recorded ?Confirmed ?Type ondansetron 4 mg disintegrating 4 mg PO Q8H PRN nausea and 01/13/24 02/18/25 Rx tablet vomiting #7 tabs vit no.95-ferrous 1 tablet PO DAILY #30 tabs 11/03/24 12/10/25 Rx fumarate 28 mg-folic acid 800 mcg tablet ( Formula) bupropion HCl 150 mg 24 hr tablet, 150 mg PO QAM #30 tabs 12/02/24 02/18/25 Rx extended release (Wellbutrin XL) Allergies Allergy/AdvReac Type Severity Reaction Status Date / Time pear Allergy Unknown Unknown Verified 02/18/25 07:38 Penicillins AdvReac Severe Nausea Verified 02/18/25 07:38 Vital Signs Vital Signs - 24 hr 02/18/25 05:48 02/18/25 07:15 02/18/25 07:17 Pulse Rate 73 72 68 Blood Pressure 124/79 132/80 129/73 Pulse Oximetry 97 Oxygen Delivery 02/18/25 07:20 02/18/25 07:33 02/18/25 07:34 Pulse Rate 72 Blood Pressure 138/73 Pulse Oximetry 98 99 98 Oxygen Delivery 02/18/25 07:36 02/18/25 07:37 02/18/25 07:39 Pulse Rate 72 Blood Pressure 133/77 Pulse Oximetry 99 Oxygen Delivery Room Air 02/18/25 07:41 02/18/25 07:44 02/18/25 07:46 Pulse Rate 71 72 Blood Pressure 141/75 H 144/74 H Pulse Oximetry 99 Oxygen Delivery 02/18/25 07:49 02/18/25 07:51 02/18/25 07:54 Pulse Rate 63 Blood Pressure 98/82 L Pulse Oximetry 98 100 Oxygen Delivery 02/18/25 07:55 02/18/25 07:59 02/18/25 08:01 Pulse Rate 67 84 Blood Pressure 145/83 H 123/70 Pulse Oximetry 100 Oxygen Delivery 02/18/25 08:04 02/18/25 08:09 02/18/25 08:14 Pulse Rate Blood Pressure Pulse Oximetry 100 100 100 Oxygen Delivery 02/18/25 08:15 02/18/25 08:19 02/18/25 08:24 Pulse Rate 72 Blood Pressure 121/69 Pulse Oximetry 100 100 Oxygen Delivery 02/18/25 08:29 02/18/25 08:30 02/18/25 08:34 Pulse Rate 76 Blood Pressure 123/69 Pulse Oximetry 100 99 Oxygen Delivery 02/18/25 08:39 02/18/25 08:44 02/18/25 08:45 Pulse Rate 71 Blood Pressure 122/65 Pulse Oximetry 98 99 Oxygen Delivery 02/18/25 08:49 Pulse Rate Blood Pressure Pulse Oximetry 97 Oxygen Delivery Exam Const: Other: Well-developed, well-nourished female in no acute distress. Neck: Other: Neck: Trachea midline, no thyromegaly or masses. Resp: Other: Lungs: Normal respiratory effort. Clear to auscultation bilaterally. Cardio: Other: Heart: Regular rate and rhythm with normal S1-S2. GI: Other: ABD: Soft, nontender, nondistended, gravid. No guarding or rebound tenderness. No hepatosplenomegaly. NST reactive. TOCO: no contractions. Bedside ultrasound shows oblique presentation with head in the maternal RUQ. Back/Spine/Pelvis: Other: Back: No CVA tenderness. Skin: Other: Skin: No lesions, rashes or ulcers noted. Extrem: Other: Extremities: nontender with no edema Psych: Other: Mental status grossly normal, with normal mood and affect. Results Labs Labs: Short CBC 02/18/25 Range/Units 06:18 WBC 9.8 (4.5-10.0) K/mm3 Hgb 11.2 L (12.0-15.0) g/dL Hct 33.1 L (37.0-47.0) % Plt Count 260 (150-375) k/mm3 Assessment and Plan Assessment and plan (1) Malpresentation of fetus: Qualifiers: malpresentation type: oblique lie Fetus number: single or unspecified fetus Qualified Code(s): O32.2XX0 - Maternal care for transverse and oblique lie, not applicable or unspecified Code(s): O32.9XX0 - Maternal care for malpresentation of fetus, unspecified, not applicable or unspecified Status: Acute Assessment and Plan: A: IUP at 39 weeks with oblique lie. P: Offered attempt at ECV with induction of labor to follow, vs. if unsuccessful. We reviewed risks, benefits and alternatives, and she agrees to proceed. (2) Term : Code(s): Z34.90 - Encounter for supervision of normal , unspecified, unspecified trimester Status: Acute
[2025-02-18] MEDS: TERBUTALINE SULFATE 1 MG/ML VIAL (09:07)
--- NOTE | 2025-02-18 09:29 | W.PM.PROC2 ---
Procedure Note - Detailed Date of Procedure 02/18/25 Pre-op Diagnosis IUP at 39 weeks Malpresentation Post-op Diagnosis Same Procedure Performed External cephalic version with ultrasound Surgeon Fam Costa MD Anesthesia Epidural Findings Fetus in oblique presentation with head in maternal RUQ. Description of Procedure She was admitted and epidural anesthesia administered. Ultrasound exam confirmed oblique lie as above. She was given terbutaline 0.25 mg sc x 1. Under ultrasound guidance, external cephalic version was undertaken, with a counterclockwise somersault resulting in cephalic presentation. FHR was visualized to be normal throughout. Cervix was 1/50/-2. Amniotomy was performed with thinly meconium stained fluid noted, and an IUPC was placed. She was taken to a labor room where oxytocin will be administered. NST reassuring. I was present and performed the entire procedure. Implants None Estimated Blood Loss 0 Drains Yes (Giron) Packing No Pathology None sent Complications None Condition Stable Disposition Other (to labor room) [facility] Billing Surgery - Charge Forward: Surgery Billing
[2025-02-18] MEDS: OXYTOCIN 30 UNITS/NS 500 ML 30 UNITS/500 ML BAG IV CONT (10:08)
--- NOTE | 2025-02-18 15:53 | PM.OBPNLAB ---
Pain Control Date/time seen: 02/18/25 15:53 Epidural pump was stopped after the ECV. She is starting to feel more painful contractions. Pelvic Exam Dilation (cm): 2 Effacement (%): 50 station: -2 Contractions Contraction frequency: 3 Status status: Category l Assessment and Plan Pitocin rate (mU/min): 18 Plan: continuous present management
[2025-02-18] MEDS: FAMOTIDINE 20 MG/2 ML VIAL IV PUSH (20:23)
[2025-02-18] MEDS: LORATADINE 10 MG TABLET PO (23:13)
[2025-02-19] VITALS (174 sets, daily range): BP systolic 101–170; BP diastolic 35–101; PULSE 58–178; RESP 14–20; TEMP 36.6–37.8; O2SAT 95–100
[2025-02-19] MEDS: LACTATED RINGERS 1,000 ML 125 ML IV CONT ×2 (01:30→07:18)
[2025-02-19] MEDS: ONDANSETRON INJ 4 MG/2 ML VIAL IV PUSH ×2 (02:03→07:30)
[2025-02-19] MEDS: ceFAZolin 2 GM in SODIUM CHLORIDE 0.9% IV 50 ML 100 ML IVPB (03:29)
[2025-02-19] MEDS: METOCLOPRAMIDE HCL INJ 10 MG/2 ML VIAL IV PUSH (04:31)
[2025-02-19] MEDS: ACETAMINOPHEN 500 MG TABLET 1000 MG PO ×3 (05:56→23:14)
[2025-02-19] MEDS: AZITHROMYCIN IV 500 MG in SODIUM CHLORIDE 0.9% IV 250 ML IVPB (07:18)
--- NOTE | 2025-02-19 07:30 | PM.OBPNLAB ---
Pain Control Date/time seen: 02/19/25 07:30 Has felt more pressure, and has had nausea/vomiting intermittently. Have started antibiotics after 18h post ROM. FHR in the 170s. She is requesting . Pelvic Exam Dilation (cm): 4 Effacement (%): 50 station: -2 Status status: Category l Comments: NST 170s and reactive, with occasional variable decelerations. Assessment and Plan Pitocin rate (mU/min): 0 Comments: I agree that primary would be appropriate at this point. She understands risks of surgery to include risks of anesthesia, risks of pain, infection, bleeding, blood products, thromboembolic phenomena and damage to adjacent structures such as bowel, bladder, ureters, blood vessels and nerves. She understands all these risks and elects to proceed with surgery.
[2025-02-19] MEDS: FAMOTIDINE 20 MG/2 ML VIAL IV PUSH (07:31)
--- NOTE | 2025-02-19 07:33 | WPDHPUPDATE1 ---
History and Physical Update Update Date/Time: 02/19/25 07:33 History and Physical has been reviewed, including an updated exam of the patient. There are NO changes in the patient's condition. Risks, benefits, and alternatives have been discussed and questions answered. Patient agrees to proceed with procedure.
--- NOTE | 2025-02-19 07:36 | P.PNAN_ITS ---
Anes - Eval Final PreProcedure Day of Procedure 02/19/25 07:36 Patient weight: obese Heart: regular rate and rhythm Lungs: clear to auscultation and normal air movement Airway: Mallampati scale class II Neurological: alert and oriented Last oral intake: >/= 8 hours ASA classification: II Emergent: no Anesthetic plan: proceed Anesthesia type and monitoring: regional epidural and standard monitoring Other findings: existing labor epidural used for c/s Results Review: All pre-operative results and documents have been reviewed as part of the pre- operative evaluation. Informed Consent: The patient's anesthetic plan and its attendant risks and benefits were discussed with the patient/family/POA. Questions were solicited and answers provided to the satisfaction of the patient/family/POA.
--- NOTE | 2025-02-19 08:43 | W.PM.OBCSD ---
OB - Delivery Note Procedure Delivery date: 02/19/25 Pre-op diagnosis: Arrest of Dilation Post-op Diagnosis: Same Induction method: Per Pitocin Protocol Delivery augmentation: Rupture of Membranes Delivery monitor: External FHT, External Uterine and Internal Uterine Procedure Performed: Primary Surgeon: Fam Costa MD Anesthesia type: Epidural Description of Procedure/Findings: Findings: Meconium-stained fluid noted. 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 Bilateral tubes and ovaries unremarkable. Techniques: The patient was taken to the operating room where she was prepared and draped in the usual sterile fashion in dorsal supine position with a leftward tilt. She received cefazolin and azithromycin preoperatively. Epidural anesthesia was found to be adequate. A Pfannenstiel skin incision was made and carried through to the underlying layer of the fascia. The fascia was incised in the midline and the incision was extended laterally. The fascia was dissected free of the underlying rectus muscles. The rectus muscles were in the midline. The peritoneum was identified, tented up and entered sharply. The peritoneal incision was extended superiorly and inferiorly with good visualization of the bladder. The bladder blade was placed. The vesicouterine peritoneum was identified, tented up and entered sharply. The incision was extended laterally and the bladder flap was developed. The bladder blade was replaced. The uterus was then incised sharply in a transverse fashion along the lower uterine segment. The incision was extended laterally. The infant's head was delivered atraumatically to the sterile field, followed by the body. The nose and mouth were bulb suctioned. After a delay, the cord was clamped and cut. The was handed off the field. Cord blood was collected. The placenta was removed manually and was passed off the field. The uterus was exteriorized and cleared of all clots and debris. The uterine incision was reapproximated using 0 Monocryl in a running, locked fashion. Excellent hemostasis resulted as did excellent reapproximation of the normal anatomy. The uterus was returned the abdomen. The pelvis was irrigated copiously with warmed normal saline. Rigorous hemostasis was assured. The fascial layer was reapproximated using 0 Vicryl in a running fashion. The skin was closed with a running, subcuticular stitch of 4 0 Vicryl. Dermaflex was applied externally. Sponge, lap, needle and instrument counts were correct. The patient was taken to the recovery room in stable condition. The infant went to the nursery in stable condition. I was present and scrubbed the entire procedure. Specimen: Yes (Cord blood) Estimated Blood Loss: 1,240 Drains: Yes (Giron) Packing: No Pathology: Yes (cord blood) Complications: None Condition: Stable Disposition: PACU Baby Date of : 02/19/25 Time of : 08:07 Gestational Age by Date: 39 gender: Female Weight (pounds): 7 Weight (ounces): 3 presentation: vertex Placenta delivery description: Manual Removal and Normal Configuration Cord Vessel Description: 3 Vessels score one minute: 4 score five minutes: 8
--- NOTE | 2025-02-19 08:47 | P.DS_ITS ---
DS: Admitting Diagnosis Admitting Diagnosis IUP at 39 weeks malpresentation DS: Discharge Diagnosis Discharge Diagnosis (1) delivery delivered: Code(s): O82 - Encounter for delivery without indication Status: Acute OB - DS: Summary Peripartum Data Procedures: Procedures Operation Date: 02/19/25 07:30 <No data on this case meets the specified criteria> Time Spent with Patient Time attestation: Total time spent providing and/or coordinating discharge services: DS: Data Data Completed and Pending Labs on day of discharge: Labs from last 24 hours 02/19/25 04:12 POC Capillary Glucose 107 H Discharge Plan Discharge Attending physician on discharge: Fam Costa Discharging Clinician: Fam Costa Patient Disposition: Home Activity: may shower, may drive after 2 weeks and pelvic rest Diet: regular Wound Care Instructions: incision open to air Discharge Instructions: Call or return if temperature above 100.4? F, increased abdominal pain, increased vaginal bleeding or any new problems. Patient Language: Indonesian Stand Alone Forms: General Discharge Information Follow-up/Referrals: Fam Costa MD [Physician, LINUX ADMINISTRATOR] - 4 Weeks Discharge Medications: New oxycodone-acetaminophen [Endocet] 5-325 mg tablet 1 - 2 tablet PO Q6H PRN (Reason: pain) Qty: 30 0RF ibuprofen 600 mg tablet 600 mg PO Q6H PRN (Reason: cramps) Qty: 30 0RF Continued bupropion HCl [Wellbutrin XL] 150 mg tablet extended release 24 hr 150 mg PO QAM Qty: 30 3RF ondansetron 4 mg tablet,disintegrating 4 mg PO Q8H PRN (Reason: nausea and vomiting) Qty: 7 0RF PNV no.95-ferrous fumarate-FA [ Formula] 28 mg iron- 800 mcg tablet 1 tablet PO DAILY Qty: 30 0RF Date of admission: 02/18/25 05:28 Primary Care Provider: UNKNOWN,DOCTOR Admitting Provider: Fam Costa Attending physician on admission: Fam Costa Condition: Stable
[2025-02-19] MEDS: OXYTOCIN 30 UNITS/NS 500 ML 30 UNITS/500 ML BAG 125 UNITS IV CONT (09:27)
[2025-02-19] MEDS: DEXTROSE 5%/0.45% SOD CHL 1,000 ML 125 ML IV CONT (13:00)
[2025-02-19] MEDS: LIDOCAINE 5% PATCH 1 PATCH TRANSDERM (14:14)
[2025-02-19] MEDS: oxyCODONE HCL (*CRX) 5 MG TAB IR PO ×2 (14:14→20:18)
[2025-02-19] MEDS: DOCUSATE SODIUM 100 MG CAPSULE PO (16:04)
[2025-02-19] MEDS: buPROPion HCL XL (24 HR) 150 MG TABCR PO (16:04)
[2025-02-19] MEDS: SIMETHICONE 80 MG TAB.CHEW PO (16:05)
[2025-02-19] MEDS: KETOROLAC 15 MG/ML VIAL (*BKC) IV PUSH ×2 (16:05→23:13)
[2025-02-19] MEDS: MULTIVIT/MIN/PREN/FOL AC/IRON TABLET 1 TAB PO (16:05)
--- NOTE | 2025-02-19 16:56 | PC.NURSE ---
1320 Consulted with patient to assess needs related to . Discussed with mother her successes, concerns and any questions she has. We reviewed working with the infant, supporting breast, protecting her nipples with an optimal deep latch, good positioning, and good hand washing. Encouraged understanding the benefits of skin to skin, responding to feeding cues, frequencies of feeding 8-12 times in 24 hours (approximately 2-3 hours), duration of feedings, milk production, intake/output feeding sheet and signs of adequate intake encouraging swallowing at the breast. Reviewed positioning and alignment, supporting breast, off-centered (asymmetrical latch) and leading with the chin with big, open, wide gape. Infant attempted to latch to the [left] breast in [cross cradle] position. Education given to the mother of how to visualize the suckling (with good rocking jaw motion) swallows (dropping of the lower jaw) and how to listen for drinking at the breast (the ka sound). The was [not able] to latch, despite several attempts, sleepy. Mother was able to hand express several drops of colostrum and give to infant, she will keep her skin to skin, watch for feeding cues and we will try again soon. Nipple care reviewed with optimal latch, good positioning and using clean hands when touching her breast. Resources used to facilitate learning were used from the [visual handouts/ tool/mom and baby guide]. Mother voiced understanding of the education shared, to call for assistance if needed. Reported to the Primary RN. [id number] CLC back to mother's room, infant had woken up and was giving feeding cues, when brought to the breast she would not give much effort to latch. Mother again did hand express several drops and gave to infant. CLC did get mother a hand pump and CLC syringe fed . FOB was then holding and she was awake just not very interested in latching. Reported to Primary RN.
[2025-02-19] MEDS: LANOLIN (LANSINOH) 7.5 GM CREAM 1 APPLIC TOPICAL (20:19)
[2025-02-20 03:35] VITALS: BP 104/66; PULSE 81; RESP 16; TEMP 36.7; O2SAT 99
[2025-02-20] MEDS: KETOROLAC 15 MG/ML VIAL (*BKC) IV PUSH (03:40)
[2025-02-20] MEDS: ACETAMINOPHEN 500 MG TABLET 1000 MG PO ×4 (03:40→21:02)
[2025-02-20 04:50] LABS: Hematocrit 23.1 % (37.0-47.0); Hemoglobin 7.6 g/dL (12.0-15.0); Immature Granulocyte Percent A 1.4 % (0-0.5); Lymphocytes Absolute Auto 1.22 K/mm3 (0.9-3.2); Mean Corpuscular HGB Conc 32.9 g/dl (32-36); Mean Corpuscular Hemoglobin 29.0 pg (26-34); Mean Corpuscular Volume 88.2 fl (80-100); Nucleated Red Blood Cells Absolute Auto 0.000 K/mm3 (0.0-0.012); Nucleated Red Blood Cells Perc 0.0 % (0.0-0.2); Platelet Count Result 178 k/mm3 (150-375); Red Blood Count 2.62 M/mm3 (4.2-5.4); White Blood Count 13.1 K/mm3 (4.5-10.0)
[2025-02-20 07:25] VITALS: BP 124/84; PULSE 85; RESP 18; TEMP 36.5; O2SAT 100
[2025-02-20] MEDS: DOCUSATE SODIUM 100 MG CAPSULE PO ×3 (09:05→17:23)
[2025-02-20] MEDS: SIMETHICONE 80 MG TAB.CHEW PO ×4 (09:05→17:23)
--- NOTE | 2025-02-20 09:36 | P.PNOB_ITS ---
OB - PN: Subj Subjective Date/time seen: 02/20/25 09:36 Interval history: She denies chest pain or SOB, no lightheadedness or dizziness. Has minimal lochia. Patient comments: pain well controlled and tolerating diet [place] baby status: doing well OB - PN: Obj Data Labs 02/20/25 03:46 Labs: Laboratory Results - last 24 hr 02/20/25 03:46 WBC 13.1 H RBC 2.62 L Hgb 7.6 L D Hct 23.1 L MCV 88.2 MCH 29.0 MCHC 32.9 RDW 16.9 H Plt Count 178 MPV 9.9 Immature Gran % (Auto) 1.4 H Neut % (Auto) 85.1 H Lymph % (Auto) 9.3 L Russell % (Auto) 3.2 Eos % (Auto) 0.7 Baso % (Auto) 0.3 Lymph # (Auto) 1.22 Russell # (Auto) 0.4 Eos # (Auto) 0.1 Baso # (Auto) 0.0 Abs Immat Gran (auto) 0.19 H Absolute Neuts (auto) 11.2 H Absolute Nucleated RBC 0.000 Nucleated RBC % 0.0 OB - PN A/P Assessment and Plan (1) delivery delivered: Code(s): O82 - Encounter for delivery without indication Status: Acute Assessment and Plan: Doing well. Routine post op care. (2) Postoperative anemia: Code(s): D64.9 - Anemia, unspecified Status: Acute Assessment and Plan: Hemodynamicly stable. No hypovolemic symptoms. Iron infusion. Time Spent With Patient Time: Total time spent is greater than 50% in coordination of care (as documented) at patient's floor/unit and/or counseling patient: Exam 2 Const: General: comfortable and no acute distress Resp: Effort & Inspection: normal respiratory effort GI: Other: incision intact fundus below umbilicus firm Psych: Mental Status: mental status grossly normal Affect: normal affect
[2025-02-20] MEDS: buPROPion HCL XL (24 HR) 150 MG TABCR PO (09:40)
[2025-02-20] MEDS: MULTIVIT/MIN/PREN/FOL AC/IRON TABLET 1 TAB PO (09:40)
[2025-02-20] MEDS: IBUPROFEN 600 MG TABLET PO ×3 (09:40→21:02)
[2025-02-20] MEDS: IRON SUCROSE COMPLEX 400 MG, IRON SUCROSE COMPLEX 100 MG in SODIUM CHLORIDE 0.9% IV 250 ML 78.57 MG IVPB (10:24)
--- NOTE | 2025-02-20 10:34 | WPDANLDNPN2 ---
Anes-Prog Note L&D-Neuraxial Date/Time: 02/20/25 10:34 Neuraxial medications: epidural PF morphine Opiod-related complaints: none Patient feedback: Patient satisfied with post-operative pain management.
--- NOTE | 2025-02-20 10:35 | WPDANLDPN2 ---
Anes-Prog Note L&D Date/Time: 02/20/25 10:35 Comfortable throughout: labor, delivery and section Neuraxial method: epidural Epidural/Spinal procedure site: clean & non-tender Neuro status: Neuro function grossly intact. Cardiovascular status: normal Respiratory status: normal Airway patency: baseline Mental status: baseline Post-Op hydration status: normal Vital Signs: Last Vital Signs Temp 36.5 C 02/20/25 07:25 Pulse 85 02/20/25 07:25 Resp 18 02/20/25 07:25 BP 124/84 02/20/25 07:25 Pulse Ox 100 02/20/25 07:25 O2 Del Method Room Air 02/19/25 11:15 Pain score (VAS): 1 I/O: Intake & Output 02/19/25 02/20/25 02/20/25 23:59 07:59 15:59 Intake Total 1140 Output Total 1550 1000 700 Balance -410 -1000 -700 Post-procedural complaints: none Patient feedback: Patient satisfied with anesthetic care.
[2025-02-20] MEDS: oxyCODONE HCL (*CRX) 5 MG TAB IR PO (10:50)
[2025-02-20 11:45] VITALS: BP 123/80; PULSE 83; RESP 14; TEMP 36.7; O2SAT 99
--- NOTE | 2025-02-20 12:34 | PC.NURSE ---
Mother verbalizes she is able to independently latch with appropriate positioning and alignment. She denies any nipple discomfort and is responsively . Infant is currently meeting outcomes for weight, output, jaundice, blood sugar and feeding frequencies of 8-12 times in 24 hours. Mother declines any additional assistance or education at this time. Mother is encouraged to call for assistance if her infant doesn?t latch, pain with latching, questions or concerns. Mother voiced understanding of information shared along with the mom/baby guide for an additional resource. Reported to the Primary RN.
[2025-02-20 16:23] VITALS: BP 145/79; PULSE 94; RESP 16; TEMP 37.1; O2SAT 99
--- NOTE | 2025-02-20 16:29 | PM.OBPNVD ---
OB - PN: Subj Subjective Date/time seen: 02/21/25 0950 Interval history: She denies chest pain or SOB, no lightheadedness or dizziness. Has minimal lochia. Patient comments: pain well controlled and tolerating diet OB - PN: Obj Data Labs 02/20/25 03:46 Labs: Laboratory Results - last 24 hr 02/20/25 03:46 WBC 13.1 H RBC 2.62 L Hgb 7.6 L D Hct 23.1 L MCV 88.2 MCH 29.0 MCHC 32.9 RDW 16.9 H Plt Count 178 MPV 9.9 Immature Gran % (Auto) 1.4 H Neut % (Auto) 85.1 H Lymph % (Auto) 9.3 L [place] % (Auto) 3.2 Eos % (Auto) 0.7 Baso % (Auto) 0.3 Lymph # (Auto) 1.22 [place] # (Auto) 0.4 Eos # (Auto) 0.1 Baso # (Auto) 0.0 Abs Immat Gran (auto) 0.19 H Absolute Neuts (auto) 11.2 H Absolute Nucleated RBC 0.000 Nucleated RBC % 0.0 OB - PN A/P Assessment and Plan (1) delivery delivered: Code(s): O82 - Encounter for delivery without indication Status: Acute Assessment and Plan: POD2. Doing well. Post op anemia. No hypovolemic symptoms. Continue oral iron. Time Spent With Patient Time: Total time spent is greater than 50% in coordination of care (as documented) at patient's floor/unit and/or counseling patient: Exam Const: General: comfortable and no acute distress Resp: Effort & Inspection: normal respiratory effort GI: Other: incision intact Psych: Mental Status: mental status grossly normal
[2025-02-20 19:50] VITALS: BP 136/85; PULSE 85; RESP 18; TEMP 36.4; O2SAT 99
[2025-02-21] MEDS: IBUPROFEN 600 MG TABLET PO ×4 (03:25→21:48)
[2025-02-21] MEDS: ACETAMINOPHEN 500 MG TABLET 1000 MG PO ×4 (03:25→21:48)
[2025-02-21 07:09] VITALS: BP 122/67; PULSE 71; RESP 16; TEMP 36.8; O2SAT 100
[2025-02-21] MEDS: buPROPion HCL XL (24 HR) 150 MG TABCR PO (09:29)
[2025-02-21] MEDS: SIMETHICONE 80 MG TAB.CHEW PO ×3 (09:29→16:54)
[2025-02-21] MEDS: MULTIVIT/MIN/PREN/FOL AC/IRON TABLET 1 TAB PO (09:29)
[2025-02-21] MEDS: DOCUSATE SODIUM 100 MG CAPSULE PO ×2 (09:29→16:54)
[2025-02-21 20:10] VITALS: BP 129/78; PULSE 77; RESP 16; TEMP 36.6; O2SAT 100
[2025-02-22] MEDS: IBUPROFEN 600 MG TABLET PO ×2 (03:25→08:50)
[2025-02-22] MEDS: ACETAMINOPHEN 500 MG TABLET 1000 MG PO ×2 (03:25→08:51)
[2025-02-22 08:45] VITALS: BP 124/75; PULSE 74; RESP 18; TEMP 36.6; O2SAT 100
[2025-02-22] MEDS: SIMETHICONE 80 MG TAB.CHEW PO (08:50)
[2025-02-22] MEDS: buPROPion HCL XL (24 HR) 150 MG TABCR PO (08:50)
[2025-02-22] MEDS: MULTIVIT/MIN/PREN/FOL AC/IRON TABLET 1 TAB PO (08:50)
[2025-02-22] MEDS: DOCUSATE SODIUM 100 MG CAPSULE PO (08:50)
--- NOTE | 2025-02-22 09:56 | PM.OBPNVD ---
OB - PN: Subj Subjective Date/time seen: 02/22/25 09:56 Interval history: She denies chest pain or SOB, no lightheadedness or dizziness. Has minimal lochia. OB - PN: Obj Data Labs 02/20/25 03:46 OB - PN A/P Time Spent With Patient Time: Total time spent is greater than 50% in coordination of care (as documented) at patient's floor/unit and/or counseling patient:
[2025-02-23 08:33] VITALS: BP 126/83; PULSE 81; RESP 18; TEMP 36.7; O2SAT 100
== END 2025-02-22 12:11 | disposition home or self-care (01) | DRG 787 ==
LOC: ANHLDR 02-19 08:48 → ANHOB2 02-22 09:57 → ANHLDR 02-25 07:47 → ANHOBPP 02-25 07:47
PROVIDERS: Admitting Provider Obstetrics & Gynecology; Visit Provider Obstetrics & Gynecology
PROC: 10D00Z1 Extraction of Products of Conception, Low, Open Approach (ICD-10-PCS; CPT 59514; principal; 2025-02-19 07:30)
DX: O32.2XX0 Maternal care for transverse and oblique lie, not applicable or unspecified (principal); D62 Acute posthemorrhagic anemia; Z3A.39 39 weeks gestation of pregnancy; Z37.0 Single live birth; O76 Abnormality in fetal heart rate and rhythm complicating labor and delivery; O62.1 Secondary uterine inertia; O77.0 Labor and delivery complicated by meconium in amniotic fluid; O99.892 Other specified diseases and conditions complicating childbirth; Q51.818 Other congenital malformations of uterus; O90.81 Anemia of the puerperium
CPT/HCPCS: 36415; 82948; 85025; 85027; 86593; 86850; 86900; 86901; J0690; A9270; J0456; J1200; J1756; J1885; J2274; J2405; J2590; J2765; J2795; J3105; J7050; J7120